=== PATIENT | female | born 1930 | race Caucasian/White ===

== ENCOUNTER 2017-07-03 12:01 | Emergency (ER) | payer MEDICARE ==
--- NOTE | 2017-07-03 07:05 | PM ---
[facility] NOTE: DATE OF VISIT: 07/02/17 HISTORY: I had the pleasure of seeing Ms. Mikaela Dixon at the [facility] today. Ms. Dixon is a pleasant 86-year-old female who presents today for right-sided upper lumbar thoracic pain secondary to myofascial dysfunction and myositis. She returns today noticing a slight difference in her usual pain presentation. She did undergo right-sided trigger point injections previously, the most recent of which was in November, which she feels offered 80% pain relief up until most recently. At this point, she feels the pain is focused more over her right lower thoracic, upper lumbar spine but feels that her pain is slightly deeper than baseline. She feels that her pain is slightly different than normal as it does not associate with the normal amount of muscle spasms and tightness, but feels that it is more midline into her spine. She continues using Tylenol, which helps between 50% to 75% of her symptomatology. She does not smoke tobacco but does drink 1 glass of wine per night. She does not use any recreational drugs. She has not had any falls in the last 3 months. She rates her pain as 4/10 and describes it as aching, radiating sensations over the right side. She notes no new onset of pain. She denies any major focal neurological deficits such as weakness or numbness. She notes no new bowel or bladder dysfunction such as incontinence or retention. She notes no new radiation of the pain. She feels the pain is centered over her right back in the area of the T12-L1 region. ALLERGIES: FLU VACCINE, CODEINE, NITROFURANTOIN, BUPROPION, CIPRO, CLOPIDOGREL , SULFA, LYRICA. MEDICATIONS: 1. Nifedipine. 2. Aspirin. 3. Corgard. 4. Dyazide. 5. Lipitor. 6. Nexium. 7. Nitroglycerin as needed. 8. Orphenadrine. 9. Singulair. 10. Synthroid. 11. Timoptic. 12. Travatan. 13. Xanax. 14. Alendronate. 15. Tylenol PM. REVIEW OF SYSTEMS: A total of 9 systems were reviewed and found to be negative other than what has been previously mentioned in the HPI and past medical history. PHYSICAL EXAMINATION: Vitals: Temperature 97.3, pulse 74, respiratory rate 18, oxygen saturation 97%, blood pressure 107/52. Height 5 feet 1-1/2 inches, weight 145 pounds. Constitutional: The patient is awake, alert, and appropriately interactive. Her mood and affect are appropriate to today's evaluation and she does not appear to be in any acute distress at rest. Strength: Grossly intact in the upper and lower extremities with no major deficits or asymmetries. Sensation: Intact throughout to light touch with no major deficits or asymmetries. Reflexes: No interval changes. Musculoskeletal: There is no obvious muscle wasting, rigidity, or spasticity, but there is significant tenderness to palpation over the right axial spine in the area of T12 and L1. Facet provocation is equivocal for dysfunction on the right. Straight leg raise is negative for radiculopathy. There does appear to be some degree of a heating pad rash and burn on the right side most consistent with a combination of eczema as well as possible psoriasis over the right back. 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 She denies any infections over the area. IMAGING: CT of the lumbar spine shows degenerative disk disease, osteoarthritis , ligamentous hypertrophy at L1-L2, L2-L3, L3-L4, L4-L5 as well as L5-S1. There is moderate left and mild neuroforaminal narrowing at L4-5. MRI of the thoracic spine shows degenerative spondylosis that is minor, L1, L2, T12 as well as T11 with no disk herniations or foraminal stenosis. She did undergo a recent diagnosis of osteoarthritis and had a DEXA bone scan, which showed some osteopenia as well as osteoporosis at her primary care's office. ASSESSMENT: Ms. 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 Her symptoms are most consistent with T12 and L1 level pain. PLAN: Given the neuraxial origin of symptomatology at this point, I will move forward with right-sided facet injections with Depo as tolerated at T12 and L1. Her questions are answered and her concerns are otherwise addressed at today's office visit. She denies use of anticoagulants, history of coagulopathies or use of antibiotics for the treatment of infections. PROCEDURE NOTE: The patient was brought over to the fluoroscopy suite and assisted to prone position on the fluoroscopy table. The low back was prepped and draped in the usual sterile fashion. The Time Out procedure was completed and documented. Using fluoroscopy, I then identified the right T12 transverse process and anesthetized the skin and subcutaneous tissues over the area with 1 ml of preservative-free 1% Lidocaine. Using a 3 1/2-inch 22 gauge spinal needle , I directed under fluoroscopic guidance to the superior and medial aspect of the right T12 transverse process. Once bone was contacted, I confirmed my view fluoroscopically, and after negative aspiration, proceeded to inject 1 ml of preservative-free 1% Lidocaine with 15 mg of Depo-Medrol. I then identified the right L1 transverse process and anesthetized the skin and subcutaneous tissues over the area with 1 ml of preservative-free 1% Lidocaine. Using a 3 1/ 2-inch 22 gauge spinal needle, I directed under fluoroscopic guidance to the superior and medial aspect of the right L1 transverse process. Once bone was contacted, I confirmed my view fluoroscopically, and after negative aspiration, proceeded to inject 1 ml of preservative-free 1% Lidocaine with 15 mg of Depo- Medrol. The patient tolerated the procedure well, and was brought back to the [facility] in stable condition, and discharged with instructions to follow up as scheduled. Fluoroscopic images were saved. The patient tolerated the procedure well. 15 mg of Depo-Medrol was used at each level. She was returned to the pain clinic in stable condition and will follow up with me in three weeks' time to reassess her progress. She did not have any focal neurological deficits or paresthesias during the procedure. [id number]/[facility] #: [id number] GABRIELA
[2017-07-03] MEDS ORDERED: Ketorolac INJ* 30 MG/ML 1 ML VIAL IM ONE (16:31)
[2017-07-03] MEDS ORDERED: Orphenadrine Citrate IV* 30 MG/ML 2 ML VIAL IM ONE (16:31)
--- NOTE | 2017-07-03 16:38 | ED ---
Back Pain - HPI Summary HPI Summary: 86 female presents to ED with complaints of chronic back pain that has been worsening over the past couple of days. Patient gets trigger point injections at Dr Baker's office however just recently, yesterday, had a steroid injection. Was told area will be sore and would not take effect until 3-5 days after however this morning patient went to sit on toilet and developed a pain that has been constant ever since. Describes the pain to be the same as her chronic pain with increasing intensity. Took tylenol without much relief. Is able to bear weight and walk however prolonged positions worsens her pain. Has tried ice and heat. No other complaints at this time. Denies saddle anesthesia, bladder/bowel incontinence, and numbness/tingling. Pain does not radiate. It stays in mid thoracic area. Denies urinary symptoms. No weakness. Wants pain relief to participate in daily activities until steroid injection kicks in.No abdominal pain or chest pain. No recent trauma, injury or falls. - History of Current Complaint Chief Complaint: EDBackInjuryPain Stated Complaint: BACK PAIN/HERE YESTERDAY Time Seen by Provider: 07/03/17 16:31 Hx Obtained From: Patient Onset/Duration: Gradual Onset, Lasting Days, Still Present, Worse Since Onset/Duration: Started Days Ago, Atraumatic - chronic, on top of steroid injection pain Timing: Constant Back Pain Location: Is Discrete @ - across thoracic mid back Severity Initially: Moderate Severity Currently: Moderate Pain Intensity: 5 Pain Scale Used: 0-10 Numeric Character: Sharp, Aching, Spasmodic - "burning" Aggravating Symptom(s): Movement, Bending, Walking Alleviating Symptom(s): Rest, Position Associated Signs And Symptoms: Positive: Negative. Negative: Swelling, Redness , Bruising, Weakness, Numbness, Tingling, Abdominal Pain, Bladder Incontinence, Bowel Incontinence, Pain with Weight Bearing Related History: Previous Back Injury - Risk Factors AAA Risk Factors: Hypertension, Atherosclerosis TAD Risk Factors: Negative Cauda Equina Risk Factors: Negative Epidural Abscess Risk Factors: Negative - Allergies/Home Medications Allergies/Adverse Reactions: Allergies Allergy/AdvReac Type Severity Reaction Status Date / Time Bupropion [From Wellbutrin] Allergy Unknown Unknown Verified 07/02/17 13:45 Reaction Details Ciprofloxacin [From Cipro] Allergy Unknown Unknown Verified 07/02/17 13:45 Reaction Details Codeine Allergy Unknown GI Upset Verified 07/04/17 22:13 Flu Virus Vaccine Allergy Unknown Unknown Verified 07/02/17 13:45 Reaction Details Nitrofurantoin Allergy Unknown Unknown Verified 07/02/17 13:45 [From Macrobid] Reaction Details Pregabalin [From Lyrica] Allergy Unknown Unknown Verified 07/02/17 13:45 Reaction Details Sulfa Drugs Allergy Unknown Unknown Verified 07/02/17 13:45 Reaction Details Clopidogrel [From Plavix] AdvReac Bleeding Verified 07/02/17 13:45 PMH/Surg Hx/FS Hx/Imm Hx Endocrine/Hematology History: Reports: Hx Thyroid Disease - hypothyroidism Denies: Hx Anticoagulant Therapy, Hx Diabetes Cardiovascular History: Reports: Hx Angina - prinzemetals angina, Hx Hypertension - CONTROLLED WITH MEDICATION Denies: Hx Pacemaker/ICD GI History: Reports: Hx Gall Bladder Disease - surgery 1995, Hx Gastroesophageal Reflux Disease - 08/26 resolved, Hx Irritable Bowel History: Reports: Hx Kidney Stones - week of september Comment Only: Other Problems/Disorders - KNOWN BILAT KIDNEY STONES FOR A WHILE BEING FOLLOWED BY UROLOGY Musculoskeletal History: Reports: Hx Arthritis, Hx Back Problems, Hx Fibromyalgia, Hx Osteoporosis, Other Musculoskeletal History - arthritis, mid back pain no trauma, SHINGLES 05/2012, FALL 06/2012 Sensory History: Reports: Hx Cataracts - surgery 1999 Denies: Hx Hearing Aid Opthamlomology History: Reports: Hx Cataracts - surgery 1999 Neurological History: Reports: Hx Transient Ischemic Attacks (TIA), Other Neuro Impairments/Disorders - PAIN CLINIC PATIENT Psychiatric History: Reports: Hx Anxiety Denies: Hx Panic Disorder - Cancer History Hx Chemotherapy: No Hx Radiation Therapy: No - Surgical History Surgery Procedure, Year, and Place: Total Abdominal Hysterectomy/bso 1984. bladder suspension 1984. left great toe 1992. breast cysts 1983. cholecystectomy 1995. hand surgery 2003. left thumb. cataracts [facility] - Immunization History Immunizations Up to Date: Yes Infectious Disease History: Reports: Hx Shingles - 2011 Denies: Traveled Outside the [place] in Last 30 Days - Family History Known Family History: Positive: None - Social History Alcohol Use: Weekly Alcohol Amount: GLASS OF WINE Substance Use Type: Reports: None Substance Use Comment - Amount & Last Used: oxycodone, valium Smoking Status (MU): Never Smoked Tobacco Review of Systems Constitutional: Negative Cardiovascular: Negative Respiratory: Negative Gastrointestinal: Negative Positive: Arthralgia, Myalgia - back pain Skin: Negative Neurological: Negative All Other Systems Reviewed And Are Negative: Yes Physical Exam Triage Information Reviewed: Yes Vital Signs On Initial Exam: Initial Vitals Temp Pulse Resp BP Pulse Ox 98.7 F 68 20 134/73 98 07/03/17 12:05 07/03/17 12:05 07/03/17 12:05 07/03/17 12:05 07/03/17 12:05 Vital Signs Reviewed: Yes Appearance: Positive: Well-Appearing, Well-Nourished, Pain Distress - mild with movement Skin: Positive: Warm, Skin Color Reflects Adequate Perfusion, Dry, Other - aqua colored chronic patches noted to lower lumbar area skin, scaley. appears stained by something. no other erythema, concern for allergic reaction, ecchymosis or edema. 2 purple/marker potts at area where injections were placed noted.. Negative: Cold, Soft, Pale, Erythema @ Head/Face: Positive: Normal Head/Face Inspection Eyes: Positive: Conjunctiva Clear ENT: Positive: Hearing grossly normal Neck: Positive: Supple, Nontender Respiratory/Lung Sounds: Positive: Clear to Auscultation, Breath Sounds Present. Negative: Rales, Rhonchi, Wheezes Cardiovascular: Positive: Normal, RRR, Pulses are Symmetrical in both Upper and Lower Extremities - 2+ pedal and radial b/l. Negative: Murmur, Rub Abdomen Description: Positive: Nontender, No Organomegaly, Soft. Negative: Bruit, CVA Tenderness (R), CVA Tenderness (L), Distended, Guarding, Peritoneal Signs, Pulsatile Mass Bowel Sounds: Positive: Present Musculoskeletal: Positive: Normal, Limited @ - at back with ROM, pain, Pain @ - mid thoracic back T4-T8, Other - no obvous deformity or signs of recent trauma. Negative: Interruption @, Edema Left, Edema Right Neurological: Positive: Normal, Sensory/Motor Intact - sensation intact and normal, Alert, Oriented to Person Place, Time, CN Intact II-III, Reflexes Intact , NV Bundle Intact Distally, Normal Gait Psychiatric: Positive: Affect/Mood Appropriate Diagnostics - Vital Signs Vital Signs Temp Pulse Resp BP Pulse Ox 07/03/17 14:17 97.5 F 70 18 119/55 99 07/03/17 12:05 98.7 F 68 20 134/73 98 - Laboratory Lab Statement: Any lab studies that have been ordered have been reviewed, and results considered in the medical decision making process. Back Pain Course/Dx - Course Course Of Treatment: has good kidney function. given norflex and toradol. had relief. will be sent home with pain managment encouraged to try lidoderm patches. ice/heat, rest. follow up dr baker and pcp. follow up derm. return if symptoms worsen or new symptoms develop. no concern for any emergent etiology at this time. no signs of trauma and normal PE findings. no need for imaging due to PE findings, HPI and no trauma/injury. rash on back chronic and of no emergent concern requiring treatment at this time. patient understands and is in agreement with this plan. - Diagnoses Differential Diagnosis/HQI/PQRI: Positive: Herniated Disc, Strain, Sprain Provider Diagnoses: Chronic back pain greater than 3 months duration Discharge - Discharge Plan Condition: Stable Disposition: HOME Prescriptions: Cyclobenzaprine TAB* [Flexeril 10 MG TAB*] 10 mg PO BEDTIME #5 tab traMADol TAB* [Ultram*] 25 mg PO ONCE #5 tab MDD 2 Patient Education Materials: Chronic Back Pain (ED) Referrals: Bill Holt MD [Primary Care Provider] - Additional Instructions: Take prescribed medication as directed for the next couple of days. Do not drive while taking these medications. For Tonight: only take 1 tramadol at bed time. Tomorrow: ibuprofen 400mg with food in morning. Tramadol at lunchtime. Ibuprofen at dinner. Flexeril at bed time. DO NOT TAKE XANAX. Hold-off on babyaspirin until you no longer are taking ibuprofen (3days). Discontinue all medications in 3-5 days when symptoms improve and resume normal daily xanax, aspirin as you typically do. Continue icing and heating. Rest. Follow up with Dr Baker and primary care provider. If new symptoms develop or symptoms worsen please return or seek medical attention promptly. (numbness/tingling, weakness, bladder/bowel incontinence, increasing pain) Make an appointment with client hr manager to follow up on chronic skin rash.
[2017-07-03 17:53] VITALS: BP 122/57
[2017-07-03] MEDS ORDERED: traMADol TAB* 50 MG PO ONE (18:48)
[2017-07-03] MEDS ORDERED: Cyclobenzaprine TAB* 10 MG PO ONE (18:48)
== END 2017-07-03 17:55 | disposition home or self-care (01) ==
LOC: ED 12:01
DX: G89.29 Other chronic pain (principal); M54.6 Pain in thoracic spine; F41.9 Anxiety disorder, unspecified; Z90.710 Acquired absence of both cervix and uterus; Z90.49 Acquired absence of other specified parts of digestive tract; Z98.42 Cataract extraction status, left eye; Z98.41 Cataract extraction status, right eye; Z88.1 Allergy status to other antibiotic agents; Z88.5 Allergy status to narcotic agent; Z88.2 Allergy status to sulfonamides; Z88.7 Allergy status to serum and vaccine; Z88.8 Allergy status to other drugs, medicaments and biological substances
CPT/HCPCS: 96372; 99282; A9270-GY; J1885; J2360

== ENCOUNTER → 2018-11-04 13:40 | Emergency (ER) | payer MEDICARE ==
--- OUTSIDE RECORDS SUMMARY | 2018-11-04 14:12 | XMS REPORT | Continuity of Care Document ---
:1930 External Reference #:[id number] Author Name Coco Lucero Care Team Providers Name Role Phone Bill Holt MD Primary Care Physician Unavailable Payers Type Date Identification Numbers Payment Provider Subscriber Policy Number: [id number] Medicare Mikaela Parks [place] PayID: [id number] [address] [place] [address] Expires: 2018 Policy Number: [id number] Medicare Mikaela Parks [place] PayID: [id number] [address] [place] [address] Policy Number: [id number] [facility] Mikaela Parks [place] PayID: [id number] [address] [place] [address] Advance Directives Description No Information Available Problems Date Description Provider Status Onset: 07/18/2015 Essential hypertension Michael Echavarria M.D. Active Family History Date Family Member(s) Problem(s) Comments Father due to Stroke () Father due to Heart Attack () Mother Thyroid Disease Hypothyroid Mother due to Natural Causes () Siblings 3 2 living sisters, 1 sister with melanoma and COPD, passed from CHF Social History Type Date Description Comments Sex Unknown Marital Status Lives With Alone Occupation Retired Tobacco Use Start: Unknown Never Smoked Cigarettes Smoking Status Reviewed: 10/28/18 Never Smoked Cigarettes ETOH Use Consumes 1 glass of wine not every day per day Tobacco Use Start: Unknown Patient has never smoked Recreational Drug Use Denies Drug Use Exercise Type/Frequency Exercises rarely Allergies, Adverse Reactions, Alerts Date Description Reaction Status Severity Comments 05/01/2014 Sulfa Antibiotics Active 05/01/2014 Flu Virus Vaccine Active 05/01/2014 Poliomyelitis Vaccine, Active patient does not Inactivated think this is accurate 05/01/2014 Serums (Vaccines) Active 05/02/2014 Wellbutrin Active 05/02/2014 Lyrica itching Active 05/02/2014 Cipro Active 05/02/2014 Codeine nightmares Active 05/02/2014 Tramadol Active 05/02/2014 Plavix Active Medications Medication Date Status Form Strength Qnty SIG Indications Ordering Provider Hydrochlorothiazide 10/28 Active Tablets 12.5mg 90tab 1 by mouth I10 Michael /2017 s every D. Brand, other day M.D. Nifedipine ER Active Tablets 30mg 30tab 1 by mouth Unknown /0000 ER 24HR s every day Levothyroxine Active Tablets 50mcg 90tab 1 by mouth Unknown Sodium /0000 s every day Fluoxetine HCL Active Capsules 20mg 30cap 1 by mouth Unknown /0000 s every day Am Alprazolam Active Tablets 0.25mg 30tab one by Unknown /0000 s mouth up to three times daily as needed for anxiety Atorvastatin Active Tablets 10mg 1 by mouth Unknown Calcium /0000 every day Nadolol Active Tablets 20mg 90tab 1 by mouth Unknown /0000 s every day Aspirin Active Chewtabs 81mg 1 by mouth Unknown /0000 every day Nexium Active Capsules 40mg 30cap 1 by mouth Unknown /0000 DR s as needed Nitrostat Active Tablets 0.4mg 25tab one sl Michael / Sub s q5min up D. Brand, to 3 doses M.D. as needed Travatan Z Active Solution 0.004% 1 ggt both Unknown /0000 eyes every night at bedtime Timoptic Active Solution 0.5% 1 drop in Unknown /0000 left eye every day Tylenol Extra Active Tablets 500mg 100ta 1 tablet Unknown Strength /0000 bs by mouth twice a day as needed Montelukast Sodium Active Tablets 10mg 1 by mouth Unknown /0000 every day Triamterene/Hydroch Hx 37.5-25mg 1 po qod Unknown lorothiazide /0000 - 10/28 Aspirin 00/00 Hx Tablets 325mg 1 by mouth Unknown /0000 every day - 04/18 Orphenadrine 00/00 Hx Tablets 100mg 1 po qd as Unknown Citrate ER /0000 ER 12HR needed - 08/30 Voltaren 00/00 Hx apply to Unknown /0000 affected - area as 08/30 Mupirocin 00/00 Hx Ointment 2% applied to Unknown /0000 affected - area as 03/03 Fluocinonide 0000 Hx Ointment 0.05% applied to Unknown /0000 affected - area as 04/02 B 12 Injection 00/00 Hx 1 Darlow, /0000 injection Bill Cano, - monthly 10/31 Allergy 00/00 Hx Tablets 10mg 1 by mouth Unknown /0000 every day - 08/30 Zyrtec Allergy 00/00 Hx daily Unknown /0000 - 10/31 Cyclobenzaprine HCL 00/00 Hx Tablets 10mg Unknown /0000 - 09/15 Ibandronate Sodium 0000 Hx Tablets 150mg 1 tablet Unknown /0000 po monthly - 10/31 Tramadol HCL 0000 Hx Tablets 50mg 1 tablet Unknown /0000 po as - needed 01/31 (does take) Drug For 00 Hx not sure Unknown Osteoporosis /0000 of name - 10/27 Medications Administered in Office Medication Date Status Form Strength Qnty SIG Indications Ordering Provider Triamcinolone 08/16/ Administered Injection Zaneb (Kenalog) 2017 MD Shae Inj, 09/17/ Administered Injection Michael D. Regadenoson, 0.1 2016 Brand, MG M.D. Technetium TC 09/17/ Administered Injection Michael D. 99M Tetrofosmin, 2016 Brand, Per Unit Dose Up M.D. To 40 Millicuries Triamcinolone 04/30/ Administered Injection Zaneb (Kenalog) 2015 MD Shae Inj, 05/17/ Administered Injection Sherie Regadenoson, 0.1 2012 Merrill, MG M.D. Technetium TC 05/17/ Administered Injection Sherie 99M Tetrofosmin, 2012 Bennett, Per Unit Dose Up M.D. To 40 Millicuries Immunizations Description No Information Available Vital Signs Date Vital Result Comment 10/28/2018 12:07pm Height 61.5 inches 5'1.50" Weight 145.00 lb Heart Rate 60 /min BP Systolic Sitting 104 mmHg Lue, reg cuff BP Diastolic Sitting 58 mmHg Lue, reg cuff BP Systolic Standing 104 mmHg Lue, reg cuff BP Diastolic Standing 54 mmHg Lue, reg cuff Respiratory Rate 12 /min O2 % BldC Oximetry 98 % BMI (Body Mass Index) 27.0 kg/m2 Ejection Fraction 55-60% echo 09/29/17 08/16/2018 3:59pm Height 61.5 inches 5'1.50" Weight 147.00 lb BP Systolic 112 mmHg BP Diastolic 60 mmHg Respiratory Rate 20 /min Body Temperature 97.1 F Pain Level 5 BMI (Body Mass Index) 27.3 kg/m2 06/02/2018 3:43pm Height 61.5 inches 5'1.50" Weight 147.00 lb per pt Heart Rate 72 /min BP Systolic Sitting 118 mmHg Rue lg cuff BP Diastolic Sitting 74 mmHg Rue lg cuff BP Systolic Standing 120 mmHg Rue BP Diastolic Standing 70 mmHg Rue Respiratory Rate 16 /min BMI (Body Mass Index) 27.3 kg/m2 Ejection Fraction 55-60% as of 09/29/17 echo 12/08/2017 10:13am Height 61.5 inches 5'1.50" Weight 148.00 lb Per patient Heart Rate 68 /min BP Systolic Sitting 120 mmHg Rue lrg cuff BP Diastolic Sitting 78 mmHg Rue lrg cuff BP Systolic Standing 114 mmHg Rue lrg cuff BP Diastolic Standing 74 mmHg Rue lrg cuff Respiratory Rate 14 /min BMI (Body Mass Index) 27.5 kg/m2 Ejection Fraction 55-60% 09/29/2017-echo 11/01/2017 10:51am Height 61.5 inches 5'1.50" Weight 148.00 lb Heart Rate 64 /min BP Systolic Sitting 120 mmHg BP Diastolic Sitting 78 mmHg Respiratory Rate 14 /min O2 % BldC Oximetry 97 % BMI (Body Mass Index) 27.5 kg/m2 Neck Circumference in inches 14 10/05/2017 12:45pm Height 61.5 inches 5'1.50" Weight 147.31 lb stated by pt, at home w/o clothes Heart Rate 78 /min BP Systolic Sitting 122 mmHg lue reg cuff BP Diastolic Sitting 74 mmHg lue reg cuff Respiratory Rate 18 /min BMI (Body Mass Index) 27.4 kg/m2 Ejection Fraction 55-60% echo 09/29/17 08/31/2017 2:07pm Height 61.5 inches 5'1.50" Weight 150.44 lb with shoes Heart Rate 56 /min BP Systolic Sitting 112 mmHg Lue reg cuff BP Diastolic Sitting 80 mmHg Lue reg cuff BP Systolic Standing 104 mmHg Lue reg cuff BP Diastolic Standing 80 mmHg Lue reg cuff Respiratory Rate 16 /min BMI (Body Mass Index) 28.0 kg/m2 Ejection Fraction 55-60% date 03/16/16 ECHO 07/17/2016 11:10am Height 61.5 inches 5'1.50" Weight 145.00 lb without shoes Heart Rate 72 /min regular BP Systolic Sitting 105 mmHg Rue reg cuff BP Diastolic Sitting 60 mmHg Rue reg cuff BP Systolic Standing 110 mmHg Rue reg cuff BP Diastolic Standing 60 mmHg Rue reg cuff Respiratory Rate 18 /min BMI (Body Mass Index) 27.0 kg/m2 Ejection Fraction 55-60% echo 02/18/16 04/30/2016 11:06am Height 61.5 inches 5'1.50" Weight 140.00 lb Heart Rate 68 /min Respiratory Rate 16 /min Pain Level 5 BMI (Body Mass Index) 26.0 kg/m2 07/18/2015 11:50am Height 61.5 inches 5'1.50" Weight 140.31 lb with out shoes Heart Rate 68 /min BP Systolic Sitting 110 mmHg Ra reg cuff BP Diastolic Sitting 62 mmHg Ra reg cuff BP Systolic Standing 112 mmHg Ra reg cuff BP Diastolic Standing 70 mmHg Ra reg cuff Respiratory Rate 16 /min BMI (Body Mass Index) 26.1 kg/m2 Ejection Fraction 53% date 03/21/13 05/02/2014 10:32am Weight 142.50 lb per pt (refused wt here in office) Heart Rate 68 /min BP Systolic Sitting 106 mmHg Ra reg cuff BP Diastolic Sitting 78 mmHg Ra reg cuff BP Systolic Standing 100 mmHg Ra BP Diastolic Standing 76 mmHg Ra Respiratory Rate 16 /min Results Test Date Facility Test Result H/L Range Note Laboratory test 03/24/2015 [facility] Troponin I 0.00 ng/mL N <0.03 [address] [place] [address] [phone] B Type Natriuretic Peptide 88 pg/mL N 2 Comp Metabolic Panel 03/24/2015 [facility] Sodium 128 mmol/L Low 133-[address] [place] [address] [phone] Potassium 3.8 mmol/L N 3.5-5.0 Chloride 98 mmol/L Low 101-111 Co2 Carbon Dioxide 23 mmol/L N 22-32 Anion Gap 7 mmol/L N 2-11 Glucose 122 mg/dL High 70-100 Blood Urea Nitrogen 12 mg/dL N 6-24 Creatinine 0.80 mg/dL N 0.51-0.95 BUN/Creatinine Ratio 15.0 N 8-20 Calcium 9.7 mg/dL N 8.6-10.3 Total Protein 6.8 g/dL N 6.4-8.9 Albumin 4.3 g/dL N 3.2-5.2 Globulin 2.5 g/dL N 2-4 Albumin/Globulin Ratio 1.7 N 1-3 Total Bilirubin 0.70 mg/dL N 0.2-1.0 Alkaline Phosphatase 89 U/L N 34-104 Alt 21 U/L N 7-52 Ast 22 U/L N 13-39 Egfr Non- 68.7 N >60 Egfr 88.3 N >60 3 Laboratory test 03/24/2015 [facility] Lactic Acid 1.5 mmol/L N 0.5-2.[address] [place] [address] [phone] CBC Auto Diff 03/24/2015 [facility] White Blood 6.1 10^3/uL N 4.8-10.[address] [place] [address] [phone] Red Blood Count 4.12 10^6/uL N 4.0-5.4 Hemoglobin 14.7 g/dL N 12.0-16.0 Hematocrit 41 % N 35-47 Mean Corpuscular Volume 101 fL High 80-97 Mean Corpuscular Hemoglobin 36 pg High 27-31 Mean Corpuscular HGB Conc 36 g/dL N 31-36 Red Cell Distribution Width 12 % N 10.5-15 Platelet Count 131 10^3/uL Low 150-450 Mean Platelet Volume 8 um3 N 7.4-10.4 Abs Neutrophils 4.7 10^3/uL N 1.5-7.7 Abs Lymphocytes 0.7 10^3/uL Low 1.0-4.8 Abs Monocytes 0.7 10^3/uL N 0-0.8 Abs Eosinophils 0 10^3/uL N 0-0.6 Abs Basophils 0 10^3/uL N 0-0.2 Abs Nucleated RBC 0.01 10^3/uL N Granulocyte % 77.1 % N 38-83 Lymphocyte % 11.2 % Low 25-47 Monocyte % 10.9 % High 1-9 Eosinophil % 0.5 % N 0-6 Basophil % 0.3 % N 0-2 Nucleated Red Blood Cells % 0.1 N 1 Reference Range and Interpretation: TnI (ng/mL) Interpretation Less Than 0.03 ng/mL Not supportive of diagnosis of ME 0.03 - 0.50 ng/mL Indeterminate: suggest serial studies if clinically indicated. Greater than 0.5 ng/mL Consistent with diagnosis of ME 2 >100 to <200 pg/mL: likely compensated congestive heart failure (CHF) 200 to 400 pg/mL: likely moderate CHF >400 pg/mL: likely moderate to severe CHF [place] [facility] 3 Because ethnic data is not always readily available, this report includes an eGFR for both -Americans and non- Americans. The National Kidney Disease Education Program (NKDEP) does not endorse the use of the MDRD equation for patients that are not between the ages of 18 and 70, are , have extremes of body size, muscle mass, or nutritional status, or are non- or non-. According to the National Kidney Foundation, irrespective of diagnosis, the stage of the disease is based on the level of kidney function: Stage Description GFR(mL/min/1.73 m(2)) 1 Kidney damage with normal or decreased GFR 90 2 Kidney damage with mild decrease in GFR 60-89 3 Moderate decrease in GFR 30-59 4 Severe decrease in GFR 15-29 5 Kidney failure <15 (or dialysis) Procedures Date Code Description Status 10/28/2018 91053 EKG Tracing & Interpretation Completed 08/16/2018 59083 Inject/Drain Joint/Bursa Major W/O US Completed 06/02/2018 13489 EKG Tracing & Interpretation Completed 10/14/2017 10884 Diffusing Capacity Completed 10/14/2017 80613 Plethysmography Determination Lung Volumes & Per Airway Completed Resist 10/14/2017 82735 Pulmonary Stress Test Simple Completed 09/29/2017 87280 ECHO Transthoracic, Real-Time 2D With Doppler And Color Completed Flow 09/29/2017 87223 ECHO Transthoracic, Real-Time 2D With Doppler And Color Completed Flow 09/17/2017 84666 Stress Test Completed 09/17/2017 50250 Myocardial Perfusion Imaging Tomographic (Spect) Multiple Completed Studies 09/06/2017 20012 Holter Monitor Review (24 hr)dr review & interp only Completed 09/02/2017 03369 ECG Monitor/Recording W/Visual Superimposition Scanning Completed 09/02/2017 12948 ECG Monitor/Recording W/Visual Superimposition Scanning Completed 09/02/2017 13766 ECG Monitor/Recording W/Visual Superimposition Scanning Completed 08/31/2017 71588 EKG Tracing & Interpretation Completed 07/17/2016 89385 EKG Tracing & Interpretation Completed 04/30/2016 99678 Inject/Drain Joint/Bursa Major W/O US Completed 03/16/2016 39927 ECHO Transthoracic, Real-Time 2D With Doppler And Color Completed Flow 07/18/2015 49852 EKG Tracing & Interpretation Completed 05/02/2014 74237 EKG Tracing & Interpretation Completed 05/17/2013 64624 Stress Test Completed 05/17/2013 03632 Myocardial Perfusion Imaging Tomographic (Spect) Multiple Completed Studies 03/24/2013 67898 Holter Monitoring 24 HR New Completed 03/21/2013 25106 ECHO Transthoracic, Real-Time 2D With Doppler And Color Completed Flow 03/10/2013 87292 EKG Tracing & Interpretation Completed Encounters Type Date Location Provider Dx Diagnosis Office Visit 08/16/2018 Orthopedic Fanta Kaufman MD M25.562 Pain in left knee 3:15p [facility] M17.12 Unilateral primary osteoarthritis, left knee Office Visit 06/02/2018 3:30p [facility] Michael Johansen I44.7 Left bundle-branch Of Manuel Echavarria M.D. block, unspecified I10 Essential (primary) hypertension R00.2 Palpitations Office Visit 12/08/2017 10:30a [facility] Michael Johansen R06.02 Shortness of Of Manuel Echavarria M.D. breath I44.7 Left bundle-branch block, unspecified I10 Essential (primary) hypertension Office Visit 11/01/2017 11:00a [facility] R06.02 Shortness of Sleep Services Of MD Asad breath [employer] Account Assistant Office Visit 10/05/2017 1:00p [facility] Michael Johansen I44.7 Left Of [employer] Account Assistant AT [facility] Daniel Echavarria bundle-branch block, unspecified R00.2 Palpitations R06.02 Shortness of breath Office Visit 08/31/2017 2:00p [facility] Michael Johansen I10 Essential (primary) Of [employer] Account Assistant AT [facility] Daniel Echavarria hypertension R06.02 Shortness of breath I44.7 Left bundle-branch block, unspecified Office Visit 07/17/2016 11:45a [facility] Michael Johansen I10 Essential (primary) Of Manuel Echavarria M.D. 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 401.9 Hypertension Of Manuel Echavarria M.D. 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 Other 401.9 Hypertension Unspec Office Visit 03/29/2013 2:00p [facility] Michael Johansen 427.69 Premature Beats Of Manuel Echavarria M.D. Other 401.9 Hypertension Unspec Office Visit 03/10/2013 11:15a [facility] Michael Johansen 785.1 Palpitations Of Manuel Echavarria M.D. 786.05 Shortness Of Breath 401.9 Hypertension Unspec Office Visit 02/22/2013 10:45a Orthopedic Rhett Guardado, 719.45 [facility] Thigh 724.3 Sciatica Office Visit 10/21/2012 11:45a Orthopedic Deidre Ocampo 719.45 [facility] RUIZ-C Pelvic Region & Thigh Office Visit 07/21/2012 11:00a Orthopedic Rhett 719.45 [facility] Guardado M.D. Pelvic Region & Thigh Office Visit 06/02/2012 11:00a Orthopedic Rhett 724.3 Sciatica [facility] Guardado M.D. Plan of Treatment 10/28/2018 - Michael Echavarria M.D.I10 Essential (primary) hypertensionNew Medication:Hydrochlorothiazide 12.5 mg - 1 by mouth every other dayFollow up:6 monthsRecommendations:Stop Triamtrene/HCTZ combo pill Start HCTZ (single medication pill) at 12.5 mg every other dayR06.02 Shortness of petgnyB89.31 Abnormal electrocardiogram [ECG] [EKG]
[2018-11-04 16:07] LABS: ABS Basophils 0 10^3/ul (0-0.2); ABS Eosinophils 0.1 10^3/ul (0-0.6); ABS Lymphocytes 1.1 10^3/ul (1.0-4.8); ABS Monocytes 0.7 10^3/ul (0-0.8); ABS Neutrophils 3.6 10^3/ul (1.5-7.7); ABS Nucleated RBC 0 10^3/ul; Eosinophil % 2.2 %; Hematocrit 40 % (35-47); Hemoglobin 13.7 g/dl (12.0-16.0); Lymphocyte % 19.3 %; Mean Corpuscular HGB Conc 35 g/dl (31-36); Mean Corpuscular Hemoglobin 36 pg (27-31); Mean Corpuscular Volume 103 fL (80-97); Mean Platelet Volume 7.2 fL (7.4-10.4); Nucleated Red Blood Cells % 0; Platelet Count 129 10^3/ul (150-450); Red Blood Count 3.84 10^6/ul (4.00-5.40); Red Cell Distribution Width 13 % (10.5-15); White Blood Count 5.6 10^3/ul (3.5-10.8)
[2018-11-04 16:23] LABS: Albumin 3.9 g/dL (3.2-5.2); Albumin/Globulin Ratio 1.6 (1-3); BUN/Creatinine Ratio 22.4 (8-20); Calcium 9.7 mg/dL (8.6-10.3); EGFR Non-African American 63.4 (>60); Globulin 2.4 g/dL (2-4); Potassium 3.9 mmol/L (3.5-5.0); Total Bilirubin 0.5 mg/dL (0.2-1.0); Total Protein 6.3 g/dL (6.4-8.9)
[2018-11-04 16:50] LABS: Urine Appearance Cloudy; Urine Bacteria Absent (Absent); Urine Bilirubin Negative (Negative); Urine Blood Negative (Negative); Urine Color Yellow; Urine Glucose Negative (Negative); Urine Ketones Negative (Negative); Urine Nitrite Negative (Negative); Urine Protein Negative (Negative); Urine Red Blood Cell Absent (Absent); Urine Specific Gravity 1.011 (1.010-1.030); Urine Transitional Epithelial Present (Absent); Urine Urobilinogen Negative (Negative); Urine White Blood Cell 3+(>20/hpf) (Absent)
[2018-11-04 17:16] VITALS: BP 123/73
--- NOTE | 2018-11-04 18:18 | ED ---
Back Pain - HPI Summary HPI Summary: Patient is an 88-year-old female who presents emergency department for evaluation of ongoing mid back pain. Patient resides at home by herself and is very active still driving and traveling. Patient notes that about 2 weeks ago she was at the bank when she reached out the window to make a deposit and strained her mid back. Patient states she then went on a trip with her daughter to [place] and continued to have back pain. Pain is mildly improved with Tylenol and Valium and heat. Patient notes she does have a history of kidney stones and was concerned she may be possibly passing a stone. She denies fever, chills, urinary symptoms, abdominal pain, vomiting, diarrhea, constipation. She does note she's had a an upper respiratory infection the last few days with nasal congestion, productive cough. She otherwise denies chest pain but does complain of intermittent wheezing. Symptoms are moderate in severity. Movement makes symptoms worse. Medications and rest makes symptoms better. Patient notes she currently sees pain management received trigger point muscular injections for chronic back pain. - History of Current Complaint Chief Complaint: EDBackInjuryPain Stated Complaint: SEVERE BACK PAINS Time Seen by Provider: 11/04/18 14:43 Hx Obtained From: Patient Pain Intensity: 5 - Allergies/Home Medications Allergies/Adverse Reactions: Allergies Allergy/AdvReac Type Severity Reaction Status Date / Time bupropion [From Wellbutrin] Allergy Unknown Unknown Verified 10/04/18 09:07 Reaction Details ciprofloxacin [From Cipro] Allergy Unknown Unknown Verified 10/04/18 09:07 Reaction Details Influenza Virus Vaccines Allergy Unknown Unknown Verified 10/04/18 09:07 Reaction Details nitrofurantoin Allergy Unknown Unknown Verified 10/04/18 09:07 [From Macrobid] Reaction Details pregabalin [From Lyrica] Allergy Unknown Unknown Verified 10/04/18 09:07 Reaction Details Sulfa (Sulfonamide Allergy Unknown Unknown Verified 10/04/18 09:07 Antibiotics) Reaction Details clopidogrel [From Plavix] AdvReac Unknown Bleeding Verified 10/04/18 09:07 codeine AdvReac Unknown GI Upset Verified 10/04/18 09:07 PMH/Surg Hx/FS Hx/Imm Hx Previously Healthy: Yes Endocrine/Hematology History: Reports: Hx Thyroid Disease - hypothyroidism Denies: Hx Anticoagulant Therapy, Hx Diabetes Cardiovascular History: Reports: Hx Angina - prinzemetals angina, Hx Hypertension - CONTROLLED WITH MEDICATION, Other Cardiovascular Problems/ Disorders - left bundle branch block Denies: Hx Pacemaker/ICD Respiratory History: Reports: Other Respiratory Problems/Disorders - PT STATES HX OF PNEUMONIA GI History: Reports: Hx Gall Bladder Disease - surgery 1995, Hx Gastroesophageal Reflux Disease - 08/26 resolved, Hx Irritable Bowel History: Reports: Hx Kidney Stones - week of september Comment Only: Other Problems/Disorders - KNOWN BILAT KIDNEY STONES FOR A WHILE BEING FOLLOWED BY UROLOGY Musculoskeletal History: Reports: Hx Arthritis, Hx Back Problems, Hx Fibromyalgia, Hx Osteoporosis, Other Musculoskeletal History - arthritis, mid back pain no trauma, SHINGLES 05/2012, FALL 06/2012 Sensory History: Reports: Hx Cataracts - surgery 1999 Denies: Hx Hearing Aid Opthamlomology History: Reports: Hx Cataracts - surgery 1999 Neurological History: Reports: Hx Transient Ischemic Attacks (TIA), Other Neuro Impairments/Disorders - PAIN CLINIC PATIENT Psychiatric History: Reports: Hx Anxiety Denies: Hx Panic Disorder - Cancer History Hx Chemotherapy: No Hx Radiation Therapy: No - Surgical History Surgery Procedure, Year, and Place: Total Abdominal Hysterectomy/bso 1984. bladder suspension 1984. left great toe 1992. breast cysts 1983. cholecystectomy 1995. hand surgery 2003. left thumb. cataracts [facility] Infectious Disease History: No Infectious Disease History: Reports: Hx Shingles - 2011 Denies: Traveled Outside the [place] in Last 30 Days - Family History Known Family History: Positive: None, Non-Contributory - Social History Occupation: Retired Lives: Alone Alcohol Use: Rare Alcohol Amount: 5 drinks per week Substance Use Type: Reports: None Substance Use Comment - Amount & Last Used: oxycodone, valium Smoking Status (MU): Never Smoked Tobacco Have You Smoked in the Last Year: No Review of Systems Constitutional: Negative Negative: Fever, Chills Eyes: Negative Positive: Nasal Discharge Cardiovascular: Negative Negative: Palpitations, Chest Pain Positive: Cough Gastrointestinal: Negative Negative: Abdominal Pain, Vomiting, Diarrhea, Nausea Positive: flank pain. Negative: dysuria, frequency, hematuria Positive: Other - back pain Skin: Negative Neurological: Negative Psychological: Normal All Other Systems Reviewed And Are Negative: Yes Physical Exam Triage Information Reviewed: Yes Vital Signs On Initial Exam: Initial Vitals Temp Pulse Resp BP Pulse Ox 98.2 F 70 18 107/70 99 11/04/18 13:51 11/04/18 13:51 11/04/18 13:51 11/04/18 13:51 11/04/18 13:51 Vital Signs Reviewed: Yes Appearance: Positive: Well-Appearing - Pt. sitting up in bed in NAD> Very pleasant and talkative. Skin: Positive: Warm, Dry Head/Face: Positive: Normal Head/Face Inspection Eyes: Positive: Normal, EOMI ENT: Positive: Pharynx normal, Other - nasal congestion noted Neck: Positive: Supple. Negative: Nuchal Rigidity Respiratory/Lung Sounds: Positive: Other - Mild expiratory wheezing in bilateral bases Cardiovascular: Positive: Normal, RRR Abdomen Description: Positive: Nontender, Soft, Other: - Mild pain over left CVA. Musculoskeletal: Positive: Other - 5/5 in bilateral LEs. Negative straight leg test bilaterally. Midline tenderness to top of lumbar spine and over left flank. No rashes noted. Neurological: Positive: Normal, CN Intact II-III Psychiatric: Positive: Affect/Mood Appropriate Diagnostics - Vital Signs Vital Signs Temp Pulse Resp BP Pulse Ox 11/04/18 17:15 98.8 F 69 16 123/73 99 11/04/18 13:51 98.2 F 70 18 107/70 99 - Laboratory Lab Results: Lab Results 11/04/18 11/04/18 11/04/18 Range/Units 15:59 15:59 16:38 WBC 5.6 (3.5-10.8) 10^3/ul RBC 3.84 L (4.00-5.40) 10^6/ul Hgb 13.7 (12.0-16.0) g/dl Hct 40 (35-47) % MCV 103 H (80-97) fL MCH 36 H (27-31) pg MCHC 35 (31-36) g/dl RDW 13 (10.5-15) % Plt Count 129 L (150-450) 10^3/ul MPV 7.2 L (7.4-10.4) fL Neut % (Auto) 64.6 % Lymph % (Auto) 19.3 % [place] % (Auto) 13.0 % Eos % (Auto) 2.2 % Baso % (Auto) 0.9 % Absolute Neuts (auto) 3.6 (1.5-7.7) 10^3/ul Absolute Lymphs (auto) 1.1 (1.0-4.8) 10^3/ul Absolute Monos (auto) 0.7 (0-0.8) 10^3/ul Absolute Eos (auto) 0.1 (0-0.6) 10^3/ul Absolute Basos (auto) 0 (0-0.2) 10^3/ul Absolute Nucleated RBC 0 10^3/ul Nucleated RBC % 0 Sodium 133 L (135-145) mmol/L Potassium 3.9 (3.5-5.0) mmol/L Chloride 101 (101-111) mmol/L Carbon Dioxide 28 (22-32) mmol/L Anion Gap 4 (2-11) mmol/L BUN 19 (6-24) mg/dL Creatinine 0.85 (0.51-0.95) mg/dL Est GFR ( Amer) 76.7 (>60) Est GFR (Non-Af Amer) 63.4 (>60) BUN/Creatinine Ratio 22.4 H (8-20) Glucose 114 H (70-100) mg/dL Calcium 9.7 (8.6-10.3) mg/dL Total Bilirubin 0.50 (0.2-1.0) mg/dL AST 18 (13-39) U/L ALT 18 (7-52) U/L Alkaline Phosphatase 72 (34-104) U/L Total Protein 6.3 L (6.4-8.9) g/dL Albumin 3.9 (3.2-5.2) g/dL Globulin 2.4 (2-4) g/dL Albumin/Globulin Ratio 1.6 (1-3) Urine Color Yellow Urine Appearance Cloudy Urine pH 7.0 (5-9) Ur Specific [place] 1.011 (1.010-1.030) Urine Protein Negative (Negative) Urine Ketones Negative (Negative) Urine Blood Negative (Negative) Urine Nitrate Negative (Negative) Urine Bilirubin Negative (Negative) Urine Urobilinogen Negative (Negative) Ur Leukocyte Esterase 3+ A (Negative) Urine WBC (Auto) 3+(>20/hpf) A (Absent) Urine RBC (Auto) Absent (Absent) Ur Squamous Epith Cells Present A (Absent) Ur Transition Epith Cell Present A (Absent) Urine Bacteria Absent (Absent) Urine Glucose Negative (Negative) Urine Ascorbic Acid * A (Negative) Result Diagrams: 11/04/18 15:59 11/04/18 15:59 Lab Statement: Any lab studies that have been ordered have been reviewed, and results considered in the medical decision making process. Back Pain Course/Dx - Course Course Of Treatment: Patient presenting with ongoing back pain after pulling incident 2 weeks ago. She has no neurological deficits or evidence of cauda equina syndrome. She has no radicular pain. She also has been complaining of cough and nasal congestion over the last several days. We'll obtain CT scan for evaluation of lumbar spine as well as left Kidney history of nephrolithiasis. We'll also obtain basic labs and chest x-ray to evaluate for left lower lobe pneumonia. On reexamination patient is resting comfortably. She states that pain has improved since in the ER. Blood work is unremarkable. Chest x-ray is negative for acute findings, reading per radiology. CT scan shows changes as well as left nephrolithiasis without evidence of obstruction, reading per radiology. Urinalysis is contaminated, we'll send for cultures patient is having no symptoms at this time. Results were discussed. Will prescribe patient Ventolin for wheezing. Will not treat with antibiotics at this time given afebrile and negative chest x-ray. Patient notes she has a prescription for Ultram from the last time she was in the ER for back pain about a year ago. Advised her she can take this medication for pain as directed. Advised caution if taking with valium as it may make her very somnolent. To continue applying heat. To call PCP and pain management for close follow-up appointment. Return to the ER symptoms change or worsen. Patient understands and agrees with this plan. - Diagnoses Differential Diagnosis/HQI/PQRI: Positive: Aneurysm, Arthritis, Compressive Cord Syndrome, Epidural Abscess, Fracture, Herniated Disc, Neoplasm, Osteomyelitis, Septic Arthritis, Strain, Sprain Provider Diagnoses: Degenerative disc disease, Bronchospasm with bronchitis, acute Discharge - Sign-Out/Discharge Documenting (check all that apply): Patient Departure - Discharge Plan Condition: Good Disposition: HOME Prescriptions: Albuterol HFA INHALER* [Ventolin HFA Inhaler*] 1 puff INH Q6H PRN #1 mdi PRN Reason: wheeze Patient Education Materials: Osteoarthritis (ED), Back Pain (ED) Referrals: Bill Holt MD [Primary Care Provider] - Additional Instructions: Schedule a follow up appointment with your PCP Can continue valium for muscle relaxer as directed Will call if urine culture is positive Can take tramadol as directed for pain--caution taking with valium as it may make you very drowsy Continue heat Avoid heavy lifting Return to ER if symptoms change or worsen - Billing Disposition and Condition Condition: GOOD Disposition: Home
== END | disposition home or self-care (01) ==
LOC: ED 13:40
DX: J20.9 Acute bronchitis, unspecified (principal); M51.36 Other intervertebral disc degeneration, lumbar region; E03.9 Hypothyroidism, unspecified; I10 Essential (primary) hypertension; I44.7 Left bundle-branch block, unspecified; Z86.73 Personal history of transient ischemic attack (TIA), and cerebral infarction without residual deficits; Z87.442 Personal history of urinary calculi; F41.9 Anxiety disorder, unspecified; I70.90 Unspecified atherosclerosis; K57.90 Diverticulosis of intestine, part unspecified, without perforation or abscess without bleeding
CPT/HCPCS: 36415; 71046; 74176; 80053; 81003; 81015; 85025; 87086; 99282

== ENCOUNTER 2018-11-16 12:59 | Emergency (ER) | payer MEDICARE ==
[2018-11-16] MEDS ORDERED: Ketorolac INJ* 30 MG/ML 1 ML VIAL IM ONE (13:43)
[2018-11-16] MEDS ORDERED: Orphenadrine Citrate IV* 30 MG/ML 2 ML VIAL IM ONE (13:43)
--- NOTE | 2018-11-16 15:04 | ED ---
Back Pain - HPI Summary HPI Summary: 88-year-old female presents with left sided back pain and rib pain shoulder and knee pain after falling yesterday. She states she felt find yesterday but she just got back from a long drive. She denies any shortness of breath or chest pain. She admits to left rib wall pain but denies any chest wall pain. She is not on blood thinners. No abdominal pain. No nausea or vomiting. No numbness or weakness. No blood in her urine or stool. She denies any loss of bowel or bladder. No saddle anesthesias. No fever. She took some Tylenol this morning with minimal relief. States she has Valium and tramadol at home but she did not take either. - History of Current Complaint Chief Complaint: EDBackInjuryPain Stated Complaint: FELL, EXTREME BACK PAIN Time Seen by Provider: 11/16/18 13:23 Pain Intensity: 10 - Allergies/Home Medications Allergies/Adverse Reactions: Allergies Allergy/AdvReac Type Severity Reaction Status Date / Time bupropion [From Wellbutrin] Allergy Unknown Unknown Verified 11/16/18 13:05 Reaction Details ciprofloxacin [From Cipro] Allergy Unknown Unknown Verified 11/16/18 13:05 Reaction Details Influenza Virus Vaccines Allergy Unknown Unknown Verified 11/16/18 13:05 Reaction Details nitrofurantoin Allergy Unknown Unknown Verified 11/16/18 13:05 [From Macrobid] Reaction Details pregabalin [From Lyrica] Allergy Unknown Unknown Verified 11/16/18 13:05 Reaction Details Sulfa (Sulfonamide Allergy Unknown Unknown Verified 11/16/18 13:05 Antibiotics) Reaction Details clopidogrel [From Plavix] AdvReac Unknown Bleeding Verified 11/16/18 13:05 codeine AdvReac Unknown GI Upset Verified 11/16/18 13:05 PMH/Surg Hx/FS Hx/Imm Hx Endocrine/Hematology History: Reports: Hx Thyroid Disease - hypothyroidism Denies: Hx Anticoagulant Therapy, Hx Diabetes Cardiovascular History: Reports: Hx Angina - prinzemetals angina, Hx Hypertension - CONTROLLED WITH MEDICATION, Other Cardiovascular Problems/ Disorders - left bundle branch block Denies: Hx Pacemaker/ICD Respiratory History: Reports: Other Respiratory Problems/Disorders - PT STATES HX OF PNEUMONIA GI History: Reports: Hx Gall Bladder Disease - surgery 1995, Hx Gastroesophageal Reflux Disease - 08/26 resolved, Hx Irritable Bowel History: Reports: Hx Kidney Stones - week of september Comment Only: Other Problems/Disorders - KNOWN BILAT KIDNEY STONES FOR A WHILE BEING FOLLOWED BY UROLOGY Musculoskeletal History: Reports: Hx Arthritis, Hx Back Problems, Hx Fibromyalgia, Hx Osteoporosis, Other Musculoskeletal History - arthritis, mid back pain no trauma, SHINGLES 05/2012, FALL 06/2012 Sensory History: Reports: Hx Cataracts - surgery 1999 Denies: Hx Hearing Aid Opthamlomology History: Reports: Hx Cataracts - surgery 1999 Neurological History: Reports: Hx Transient Ischemic Attacks (TIA), Other Neuro Impairments/Disorders - PAIN CLINIC PATIENT Psychiatric History: Reports: Hx Anxiety Denies: Hx Panic Disorder - Cancer History Hx Chemotherapy: No Hx Radiation Therapy: No - Surgical History Surgery Procedure, Year, and Place: Total Abdominal Hysterectomy/bso 1984. bladder suspension 1984. left great toe 1992. breast cysts 1983. cholecystectomy 1995. hand surgery 2003. left thumb. cataracts [facility] Infectious Disease History: No Infectious Disease History: Reports: Hx Shingles - 2011 Denies: Traveled Outside the [place] in Last 30 Days - Family History Known Family History: Positive: None, Non-Contributory - Social History Alcohol Use: Rare Alcohol Amount: 5 drinks per week Substance Use Type: Reports: None Substance Use Comment - Amount & Last Used: oxycodone, valium Smoking Status (MU): Never Smoked Tobacco Have You Smoked in the Last Year: No Review of Systems Negative: Fever Positive: Other - ribs left pain. Negative: Chest Pain Negative: Shortness Of Breath Positive: Myalgia - left shoulder and knee, back apin All Other Systems Reviewed And Are Negative: Yes Physical Exam Triage Information Reviewed: Yes Vital Signs On Initial Exam: Initial Vitals Temp Pulse Resp BP Pulse Ox 98.1 F 69 16 123/60 99 11/16/18 13:02 11/16/18 13:02 11/16/18 13:02 11/16/18 13:02 11/16/18 13:02 Vital Signs Reviewed: Yes Appearance: Positive: Well-Appearing Skin: Positive: Warm, Dry Head/Face: Positive: Normal Head/Face Inspection Eyes: Positive: Normal, Conjunctiva Clear ENT: Positive: Pharynx normal Respiratory/Lung Sounds: Positive: Clear to Auscultation, Breath Sounds Present , Other - tenderness left ribs Cardiovascular: Positive: Normal, RRR Abdomen Description: Positive: Nontender, Soft Bowel Sounds: Positive: Present Musculoskeletal: Positive: Limited @ - back, Other - tenderness left side of back, good pulses, tenderness patella left knee, sensation grossly intact. tenderness left shoulder. neg SLR. Neurological: Positive: Normal, Normal Gait Psychiatric: Positive: Normal Diagnostics - Vital Signs Vital Signs Temp Pulse Resp BP Pulse Ox 11/16/18 13:02 98.1 F 69 16 123/60 99 - Laboratory Lab Statement: Any lab studies that have been ordered have been reviewed, and results considered in the medical decision making process. - Radiology knee Radiology Interpretation Completed By: Radiologist Summary of Radiographic Findings: IMPRESSION: No fracture is noted. No joint effusion is noted. Degenerative changes of the. patellofemoral joint is noted. rib Radiology Interpretation Completed By: Radiologist Summary of Radiographic Findings: IMPRESSION: No definite fracture of the left ribs is noted. shoulder Radiology Interpretation Completed By: Radiologist Summary of Radiographic Findings: IMPRESSION: No fracture of the left shoulder is noted. AC joint arthritis is noted. - CT spine CT Interpretation Completed By: Radiologist Summary of CT Findings: IMPRESSION: No fracture of the lumbar spine is noted. Degenerative disc disease at L2-L3. is noted of moderate degree. Moderate facet arthropathy is noted at L4-L5 and L5-S1. without definite central or foraminal stenosis. No significant change is noted since. July 15, 2016. Re-Evaluation - Re-Evaluation First Eval Change: Improved Comment: feeling better after toradol and norflex IM Back Pain Course/Dx - Course Course Of Treatment: 88-year-old female presents with left sided back pain and rib pain shoulder and knee pain after falling yesterday. She states she felt find yesterday but she just got back from a long drive. She denies any shortness of breath or chest pain. She admits to left rib wall pain but denies any chest wall pain. She is not on blood thinners. No abdominal pain. No nausea or vomiting. No numbness or weakness. No blood in her urine or stool. She denies any loss of bowel or bladder. No saddle anesthesias. No fever. She took some Tylenol this morning with minimal relief. States she has Valium and tramadol at home but she did not take either. On exam tenderness over left lower ribs. Tenderness left-sided back. Tender over left knee and left shoulder. Neurovascularly intact. X-ray of shoulder ribs back and knee are normal. Gave Norflex and Toradol and feeling better. Patient will take Valium and tramadol have at home. Patient understands agrees with plan. - Diagnoses Differential Diagnosis/HQI/PQRI: Positive: Fracture, Herniated Disc, Strain Provider Diagnoses: Rib pain on left side, Back pain, Left knee pain, Left shoulder pain, Fall Discharge - Sign-Out/Discharge Documenting (check all that apply): Patient Departure - Discharge Plan Condition: Good Disposition: HOME Patient Education Materials: Back Pain (ED), Rib Contusion (ED) Referrals: Bill Holt MD [Primary Care Provider] - Additional Instructions: add on tramadol every 12 hours as needed for pain ice area take deep breaths throughout the day follow up with primary Return to ED if develop any new or worsening symptoms - Billing Disposition and Condition Condition: GOOD Disposition: Home
[2018-11-16 15:39] VITALS: BP 108/62
== END 2018-11-16 15:37 | disposition home or self-care (01) ==
LOC: ED 12:59
DX: R07.81 Pleurodynia (principal); M54.9 Dorsalgia, unspecified; M25.562 Pain in left knee; M25.512 Pain in left shoulder; I10 Essential (primary) hypertension; Z88.1 Allergy status to other antibiotic agents; Z88.5 Allergy status to narcotic agent; Z88.7 Allergy status to serum and vaccine; Z88.2 Allergy status to sulfonamides; Z88.8 Allergy status to other drugs, medicaments and biological substances
CPT/HCPCS: 72131; 96372; 99281; J1885; J2360

== ENCOUNTER → 2018-12-06 12:02 | Emergency (ER) | payer MEDICARE ==
[~2018-12-06 12:02] MED LIST: Bupivacaine 0.5%* 50 ML VIAL INJ ONE
--- NOTE | 2018-12-06 13:26 | ED ---
Back Pain - HPI Summary HPI Summary: This patient is a 88 year old female who is presenting to the emergency room with a cc of severe back pain since 11-16-18. She is rating the pain 8/10 in severity. Pt states the pain is worse with pivoting at the waist. The patient fell on 11-15-[address] on 11-16-18. She is a pain management patient but did not call there because she didnt want to wait. She receives trigger point injections with relief. She is denying pain into LEs. She also denies numbness , weakness, and incontinence. She has seen a PT in the past for vertigo and refuses to see a chiro as she does not like them. - History of Current Complaint Chief Complaint: EDBackInjuryPain Stated Complaint: BACK PAIN Time Seen by Provider: 12/06/18 13:14 Hx Obtained From: Patient Onset/Duration: Lasting Weeks, Still Present Onset/Duration: Traumatic, Still Present Timing: Constant Back Pain Location: Is Diffuse Severity Initially: Severe Severity Currently: Severe Pain Intensity: 8 Pain Scale Used: 0-10 Numeric Aggravating Symptom(s): Other - twisting Associated Signs And Symptoms: Positive: Negative - numbness, weakness, and incontinence. - Allergies/Home Medications Allergies/Adverse Reactions: Allergies Allergy/AdvReac Type Severity Reaction Status Date / Time bupropion [From Wellbutrin] Allergy Unknown Unknown Verified 12/06/18 12:08 Reaction Details ciprofloxacin [From Cipro] Allergy Unknown Unknown Verified 12/06/18 12:08 Reaction Details Influenza Virus Vaccines Allergy Unknown Unknown Verified 12/06/18 12:08 Reaction Details nitrofurantoin Allergy Unknown Unknown Verified 12/06/18 12:08 [From Macrobid] Reaction Details pregabalin [From Lyrica] Allergy Unknown Unknown Verified 12/06/18 12:08 Reaction Details Sulfa (Sulfonamide Allergy Unknown Unknown Verified 12/06/18 12:08 Antibiotics) Reaction Details clopidogrel [From Plavix] AdvReac Unknown Bleeding Verified 12/06/18 12:08 codeine AdvReac Unknown GI Upset Verified 12/06/18 12:08 PMH/Surg Hx/FS Hx/Imm Hx Endocrine/Hematology History: Reports: Hx Thyroid Disease - hypothyroidism Denies: Hx Anticoagulant Therapy, Hx Diabetes Cardiovascular History: Reports: Hx Angina - prinzemetals angina, Hx Hypertension - CONTROLLED WITH MEDICATION, Other Cardiovascular Problems/ Disorders - left bundle branch block Denies: Hx Pacemaker/ICD Respiratory History: Reports: Other Respiratory Problems/Disorders - PT STATES HX OF PNEUMONIA GI History: Reports: Hx Gall Bladder Disease - surgery 1995, Hx Gastroesophageal Reflux Disease - 08/26 resolved, Hx Irritable Bowel History: Reports: Hx Kidney Stones - week of september Comment Only: Other Problems/Disorders - KNOWN BILAT KIDNEY STONES FOR A WHILE BEING FOLLOWED BY UROLOGY Musculoskeletal History: Reports: Hx Arthritis, Hx Back Problems, Hx Fibromyalgia, Hx Osteoporosis, Other Musculoskeletal History - arthritis, mid back pain no trauma, SHINGLES 05/2012, FALL 06/2012 Sensory History: Reports: Hx Cataracts - surgery 1999 Denies: Hx Hearing Aid Opthamlomology History: Reports: Hx Cataracts - surgery 1999 Neurological History: Reports: Hx Transient Ischemic Attacks (TIA), Other Neuro Impairments/Disorders - PAIN CLINIC PATIENT Psychiatric History: Reports: Hx Anxiety Denies: Hx Panic Disorder - Cancer History Hx Chemotherapy: No Hx Radiation Therapy: No - Surgical History Surgery Procedure, Year, and Place: Total Abdominal Hysterectomy/bso 1984. bladder suspension 1984. left great toe 1992. breast cysts 1983. cholecystectomy 1995. hand surgery 2003. left thumb. cataracts [facility] - Immunization History Immunizations Up to Date: Yes Infectious Disease History: No Infectious Disease History: Reports: Hx Shingles - 2011 Denies: Traveled Outside the [place] in Last 30 Days - Family History Known Family History: Positive: Non-Contributory - Social History Alcohol Use: Rare Alcohol Amount: 5 drinks per week Substance Use Type: Reports: None Substance Use Comment - Amount & Last Used: oxycodone, valium Smoking Status (MU): Never Smoked Tobacco Have You Smoked in the Last Year: No Review of Systems Negative: Fever Genitourinary: Negative - incontinence. Musculoskeletal: Negative - incontinence. 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 2+ patellar reflex Neuro: normal, sensory motor intact, A&Ox3 Triage Information Reviewed: Yes Vital Signs On Initial Exam: Initial Vitals Temp Pulse Resp BP Pulse Ox 96.9 F 69 17 105/73 98 12/06/18 12:03 12/06/18 12:03 12/06/18 12:03 12/06/18 12:03 12/06/18 12:03 Vital Signs Reviewed: Yes Procedures - Procedure Summary Procedure Summary: Trigger point injection for control of lumbar back pain: Description: The patient was laid supine and the lumbar musculature was cleaned with alcohol. She was injected with a total of 15 cc of 0.5% bupivacaine and divided aliquots. This was massaged through the tissue and gave near immediate pain relief. She tolerated this well without complication. Diagnostics - Vital Signs Vital Signs Temp Pulse Resp BP Pulse Ox 12/06/18 12:03 96.9 F 69 17 105/73 98 - Laboratory Lab Statement: Any lab studies that have been ordered have been reviewed, and results considered in the medical decision making process. Re-Evaluation - Re-Evaluation First Eval Re-Evaluation Time: 13:59 Change: Improved Comment: Her pain has decreased. Back Pain Course/Dx - Course Course Of Treatment: Patient with chronic muscular back pain improved in the past by trigger point injections. Trigger point injection was given here and discomfort is much better. She had CT scan on 1 after falling. No trauma since. No radicular symptoms. No bowel or bladder issues. Neuro intact. Assessment/Plan: Nurse's note reviewed - Diagnoses Differential Diagnosis/HQI/PQRI: Positive: Arthritis, Cauda Equina Syndrome, Compressive Cord Syndrome, Strain, Sprain Provider Diagnoses: Exacerbation of chronic back pain Discharge - Sign-Out/Discharge Documenting (check all that apply): Patient Departure - Discharge Plan Condition: Stable Disposition: HOME Patient Education Materials: Chronic Back Pain (DC), Lower Back Exercises (ED) Referrals: Bill Holt MD [Primary Care Provider] - Additional Instructions: Prescription for Physical Therapy. Range of motion exercises, stretching. Follow-up with pain management and physical therapy. Return with fever, worse, numbness/weakness, new symptoms or other concerns. Continue prescribed medications such as Flexeril. - Billing Disposition and Condition Condition: STABLE Disposition: Home - Attestation Statements Document Initiated by Camilleibsally: Yes Documenting Scribe: Gian Shrestha Provider For Whom Lilian is Documenting (Include Credential): Moises Ma MD Scribe Attestation: Gian Patel , scribed for Moises Ma MD on 12/06/18 at 1508. Scribe Documentation Reviewed: Yes Provider Attestation: The documentation as recorded by the Gian nieves accurately reflects the service I personally performed and the decisions made by Moises shirley MD Status of Scribe Document: Viewed
[2018-12-06 15:16] VITALS: BP 149/69
== END | disposition home or self-care (01) ==
LOC: ED 12:02
DX: M54.9 Dorsalgia, unspecified (principal); G89.29 Other chronic pain; E03.9 Hypothyroidism, unspecified; Z88.2 Allergy status to sulfonamides; I10 Essential (primary) hypertension; I20.1 Angina pectoris with documented spasm; Z87.442 Personal history of urinary calculi; F41.9 Anxiety disorder, unspecified; Z86.73 Personal history of transient ischemic attack (TIA), and cerebral infarction without residual deficits; I44.7 Left bundle-branch block, unspecified
CPT/HCPCS: 20600; 99281

== ENCOUNTER → 2019-01-05 14:02 | Emergency (ER) | payer MEDICARE ==
--- NOTE | 2019-01-05 14:32 | ED ---
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 Patient has a lac to her R temporal scalp and an abrasion to her L forehead. She was in her slippers in the garage and slipped on some grit. She hit her head on a cast iron pipe and concrete, and landed on her L- side. Associated sx: L sided rib cage pain, L-sided back pain. She denies CP, SOB, ADLER, syncope, neck pain. At baseline, she has some chest congestion and a known L kidney stone. She takes a baby aspirin daily, Nadolol, Nifedipine, thyroid medication, eye drops for glaucoma, and occasionally Xanax. She sees Dr. Echavarria, cardiology. PMHx: Prinzmetal angina, LBBB. Surgeries include: cholecystectomy, complete hysterectomy, bladder repair, three breast surgeries. Vitals at bedside: HR: 74 bpm, BP: 127/60. Home Medications Medication Instructions Recorded Confirmed Type Atorvastatin* [Lipitor*] 10 mg PO BEDTIME 09/06/12 10/04/18 History Esomeprazole(NF) [Nexium(NF)] 40 mg PO DAILY PRN 09/06/12 10/04/18 History Levothyroxine TAB* [Synthroid TAB*] 50 mcg PO DAILY 09/06/12 10/04/18 History Nadolol TAB* [Corgard TAB*] 20 mg PO DAILY 09/06/12 10/04/18 History Nitroglycerin TAB 0.4 MG* 0.4 mg PO SEE INSTRUCTIONS PRN 09/06/12 10/04/18 History Timolol 0.5% OPTH.ALFREDITO* [Timoptic 1 drop LEFT EYE DAILY 09/06/12 10/04/18 History 0.5% Opth*] Triamterene/HCTZ 37.5-25 MG* 1 cap PO EVERY OTHER DAY 09/06/12 10/04/18 History [Dyazide*] NIFEdipine [Adalat cc] 30 mg PO DAILY 05/15/13 10/04/18 History ALPRAZolam [Xanax] 0.25 mg PO TID PRN 08/13/14 10/04/18 History Travoprost Z 0.004% OPHTH (NF) 1 drop BOTH EYES DAILY 08/13/14 10/04/18 History [Travatan Z 0.004% OPTH (NF)] Cyclobenzaprine TAB* [Flexeril 10 10 mg PO BEDTIME PRN 07/30/17 10/04/18 History MG TAB*] traMADol TAB* [Ultram*] 50 mg PO BID PRN 07/30/17 10/04/18 History Aspirin 81 mg CHEW TAB* [Aspirin 81 mg PO BEDTIME 12/30/17 10/04/18 History Low Dose TAB*] Montelukast Sodium TAB* [Singulair 10 mg PO DAILY 12/30/17 10/04/18 History TAB*] Gabapentin CAP(*) [Neurontin 300 300 mg PO BID 10/04/18 10/04/18 History CAP(*)] Albuterol HFA INHALER* [Ventolin 1 - 2 puff INH Q6H PRN #1 mdi 11/05/18 Rx HFA Inhaler*] Albuterol HFA INHALER* [Ventolin 1 puff INH Q6H PRN #1 mdi 11/05/18 Rx HFA Inhaler*] - History Of Current Complaint Chief Complaint: EDHeadInjury Stated Complaint: FALL/HEAD INJURY Time Seen by Provider: 01/05/19 14:26 Hx Obtained From: Patient, Family/Copy Writer, EMS Mechanism Of Injury: Fall From A Standing Position Onset/Duration: Started Hours Ago, Traumatic, Still Present Onset of Pain: Immediate, Post Accident Severity Currently: Mild Severity Initially: Mild Pain Intensity: 3 Pain Scale Used: 0-10 Numeric Location of Head Injury: Frontal - Left forehead, Temporal - R Location: Discrete At: - right temporal and left forehead Character: Dull Aggravating Factor(s): Other: - nothing Alleviating Factor(s): Other: - nothing Associated Signs And Symptoms: Other: - Pos: L-sided rib cage pain; L-sided back pain. Neg: CP, SOB, ADLER, syncope, neck pain. - Allergies/Home Medications Allergies/Adverse Reactions: Allergies Allergy/AdvReac Type Severity Reaction Status Date / Time bupropion [From Wellbutrin] Allergy Unknown Unknown Verified 12/06/18 12:08 Reaction Details ciprofloxacin [From Cipro] Allergy Unknown Unknown Verified 12/06/18 12:08 Reaction Details Influenza Virus Vaccines Allergy Unknown Unknown Verified 12/06/18 12:08 Reaction Details nitrofurantoin Allergy Unknown Unknown Verified 12/06/18 12:08 [From Macrobid] Reaction Details pregabalin [From Lyrica] Allergy Unknown Unknown Verified 12/06/18 12:08 Reaction Details Sulfa (Sulfonamide Allergy Unknown Unknown Verified 12/06/18 12:08 Antibiotics) Reaction Details clopidogrel [From Plavix] AdvReac Unknown Bleeding Verified 12/06/18 12:08 codeine AdvReac Unknown GI Upset Verified 12/06/18 12:08 PMH/Surg Hx/FS Hx/Imm Hx Previously Healthy: No Endocrine/Hematology History: Reports: Hx Thyroid Disease - hypothyroidism Denies: Hx Anticoagulant Therapy, Hx Diabetes Cardiovascular History: Reports: Hx Angina - Prinzemetal's angina, Hx Hypertension - CONTROLLED WITH MEDICATION, Other Cardiovascular Problems/ Disorders - left bundle branch block Denies: Hx Pacemaker/ICD Respiratory History: Reports: Hx Pneumonia GI History: Reports: Hx Gall Bladder Disease - surgery 1995, Hx Gastroesophageal Reflux Disease - 08/26 resolved, Hx Irritable Bowel History: Reports: Hx Kidney Stones - week of september Comment Only: Other Problems/Disorders - KNOWN BILAT KIDNEY STONES FOR A WHILE BEING FOLLOWED BY UROLOGY Musculoskeletal History: Reports: Hx Arthritis, Hx Back Problems, Hx Fibromyalgia, Hx Osteoporosis, Other Musculoskeletal History - arthritis, mid back pain no trauma, SHINGLES 05/2012, FALL 06/2012 Sensory History: Reports: Hx Cataracts - surgery 1999 Denies: Hx Hearing Aid Opthamlomology History: Reports: Hx Cataracts - surgery 1999 Neurological History: Reports: Hx Transient Ischemic Attacks (TIA), Other Neuro Impairments/Disorders - PAIN CLINIC PATIENT Psychiatric History: Reports: Hx Anxiety Denies: Hx Panic Disorder - Cancer History Hx Chemotherapy: No Hx Radiation Therapy: No - Surgical History Surgery Procedure, Year, and Place: Total Abdominal Hysterectomy/bso 1984. bladder suspension 1984. left great toe 1992. breast cysts 1983. cholecystectomy 1995. hand surgery 2003. left thumb. cataracts [facility] Infectious Disease History: No Infectious Disease History: Reports: Hx Shingles - 2011 Denies: Traveled Outside the [place] in Last 30 Days - Family History Family History: microscopic hematuria (twin sister) - Social History Occupation: Retired Lives: Alone Alcohol Use: Rare Alcohol Amount: 5 drinks per week Substance Use Type: Reports: Prescribed Substance Use Comment - Amount & Last Used: oxycodone, valium - prescribed Hx Tobacco Use: No Smoking Status (MU): Never Smoked Tobacco Have You Smoked in the Last Year: No Review of Systems Constitutional: Negative Eyes: Negative Negative: Chest Pain Negative: Shortness Of Breath Gastrointestinal: Negative Positive: no symptoms reported Musculoskeletal: Other - pos: L-sided rib cage pain; L-sided back pain Negative: Other - neg: neck pain Skin: Other - pos: lac to R-side of head; abrasion to L-forehead Negative: Headache, Syncope Psychological: Normal All Other Systems Reviewed And Are Negative: Yes Physical Exam - Summary Physical Exam Summary: Appearance: Well-appearing, moderate pain distress, well-nourished Skin: Warm, color reflects adequate perfusion, dry. Abrasion of 5 cm above L eyebrow with swelling; at the base of the abrasion, there is a suturable lac of 2cm. There is a 4cm curvilinear lac to R temporal head, not deep to galea, with bleeding controlled. Head: Normal Head/Face inspection, atraumatic Eyes: Conjunctiva clear, PERRL, EOMI, hematoma above left eyebrow as above ENT: Normal inspection, no Lowe[employer] signs Neck: Supple, no nodes, no JVD, no spinal tenderness Respiratory: Lungs clear, normal breath sounds, no respiratory distress. Left lateral chest wall tenderness, Chest Wall: No bony tenderness, no crepitus, no ecchymosis. Cardio: RRR, No murmur, pulses normal, brisk capillary refill Abdomen: Soft,non-tender, no upper quadrant tenderness, nondistended, no guarding, no rebound Bowel sounds: Present Musculoskeletal: Strength Intact/ROM intact, no calf tenderness, no edema. Tenderness to posterior L flank Psychological: Normal Neuro: Alert, muscle tone normal, no focal deficit Triage Information Reviewed: Yes Vital Signs On Initial Exam: Initial Vitals Temp Pulse Resp BP Pulse Ox 98.3 F 72 17 127/60 98 01/05/19 14:15 01/05/19 14:15 01/05/19 14:15 01/05/19 14:15 01/05/19 14:15 Vital Signs Reviewed: Yes - Fabiana Coma Scale Best Eye Response: 4 - Spontaneous Best Motor Response: 6 - Obeys Commands Best Verbal Response: 5 - Oriented Coma Scale Total: 15 Diagnostics - Vital Signs Vital Signs Temp Pulse Resp BP Pulse Ox 01/05/19 14:15 98.3 F 72 17 127/60 98 - Laboratory Result Diagrams: 01/05/19 14:43 01/05/19 14:43 Lab Statement: Any lab studies that have been ordered have been reviewed, and results considered in the medical decision making process. - Radiology CXR Radiology Interpretation Completed By: Radiologist Summary of Radiographic Findings: IMPRESSION: No active cardiopulmonary dz is noted. ED provider has reviewed this report. - CT BRAIN CT CT Interpretation Completed By: Radiologist Summary of CT Findings: IMPRESSION: No acute intracranial pathology. ED provider has reviewed this report. C-SPINE CT CT Interpretation Completed By: Radiologist Summary of CT Findings: IMPRESSION: OSTEOPENIA. DEGENERATIVE DISC DISEASE AND OSTEOARTHRITIS. NO ACUTE OSSEOUS INJURY TO THE CERVICAL SPINE. ED provider has reviewed this report. - EKG 14:41 ST Segment: Non-Specific Ectopy: None EKG Comparison: Other - as compared with EKG on 03/24/15, LBBB appears new. Summary of EKG Findings: An EKG at 14:41 reveals SR 71 bpm with 1st degree AVblock, nml QTc, LBBB (not new per patient). No STEMI. No acute changes. Re-Evaluation - Re-Evaluation 1 Re-Evaluation Time: 18:51 Change: Improved Comment: Patient's last tetanus was 6 years ago. Discussing plans for discharge. VERONICA Martinez sutured pt's lacs. Procedure note reviewed. Lakisha to right temporal area and sutures above left eyebrow. 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 Patient has a lac to her R temporal scalp and an abrasion to her L forehead. She was in her slippers in the garage and slipped on some grit. She hit her head on a cast iron pipe and concrete, and landed on her L-side. Associated sx: L sided rib cage pain, L-sided back pain. She denies CP, SOB, ADLER , syncope, neck pain. At baseline, she has some chest congestion and a known L kidney stone. She takes a baby aspirin daily, Nadolol, Nifedipine, thyroid medication, eye drops for glaucoma, and occasionally Xanax. She sees Dr. Echavarria, cardiology. PMHx: prinzmetal angina, LBBB. Allergies noted. Pt medications reviewed this visit. UA results show 3+ leukocyte esterase, 1+ WBC, hyaline casts present, squamous epithelia present, decreased specific gravity. Brain CT , C-Spine CT and CXR are unremarkable. An EKG at 14:41 reveals SR 71 bpm with 1st degree AVblock, nml QTc, LBBB (not new per patient). No STEMI. No acute changes. Compared with EKG on 03/24/15, LBBB appears new, but pt knew she had a hx of LBBB, so LBBB on today's EKG is not new for the patient, just new for [facility] records. VERONICA Amanda Mustafa will suture lacs. Pt and daughter agree with discharge. Pt will follow up with Dr. Holt in 2 days. - Diagnoses Differential Diagnosis/HQI/PQRI: Cerebral Contusion, Cervical Sprain, Concussion Without LOC, Hematoma, Intracranial Bleed, Laceration Provider Diagnoses: Fall, Facial laceration, Scalp laceration Discharge - Sign-Out/Discharge Documenting (check all that apply): Patient Departure - D/C Patient Received Moderate/Deep Sedation with Procedure: No - Discharge Plan Condition: Stable Disposition: HOME Patient Education Materials: Care For Your Stitches (ED), Laceration (ED), Staple Care (ED), Fall Prevention (ED) Referrals: Bill Holt MD [Primary Care Provider] - 5 Days (You should have your lakisha removed in 7 days, and the sutures on your face removed in 5 days. ) Additional Instructions: Keep your sutures and your lakisha clean and dry. Watch for infection. The sutures come out in 5 days. The lakisha come out in 7 days. The RETURN TO THE EMERGENCY DEPARTMENT FOR CHANGING OR WORSENING SYMPTOMS. - Billing Disposition and Condition Condition: STABLE Disposition: Home - Attestation Statements Document Initiated by Scribe: Yes Documenting Scribe: Brooke Echavarria Provider For Whom Scribe is Documenting (Include Credential): Dr. Kailyn Boyle MD Scribe Attestation: Brooke Patel, scribed for Dr. Kailyn Boyle MD on 01/09/19 at 2055. Scribe Documentation Reviewed: Yes Provider Attestation: The documentation as recorded by the scribe, Brooke Echavarria accurately reflects the service I personally performed and the decisions made by me, Dr. Kailyn Boyle MD Status of Camilleibsally Document: Viewed
[2019-01-05 14:51] LABS: ABS Basophils 0 10^3/ul (0-0.2); ABS Eosinophils 0.4 10^3/ul (0-0.6); ABS Lymphocytes 0.9 10^3/ul (1.0-4.8); ABS Monocytes 0.7 10^3/ul (0-0.8); ABS Neutrophils 4.1 10^3/ul (1.5-7.7); ABS Nucleated RBC 0 10^3/ul; Eosinophil % 7.1 %; Hematocrit 38 % (35-47); Hemoglobin 13.4 g/dl (12.0-16.0); Lymphocyte % 15.2 %; Mean Corpuscular HGB Conc 35 g/dl (31-36); Mean Corpuscular Hemoglobin 36 pg (27-31); Mean Corpuscular Volume 102 fL (80-97); Nucleated Red Blood Cells % 0; Platelet Count 155 10^3/ul (150-450); Red Blood Count 3.73 10^6/ul (4.00-5.40); Red Cell Distribution Width 13 % (10.5-15); White Blood Count 6.2 10^3/ul (3.5-10.8)
[2019-01-05 15:06] LABS: Albumin 4.2 g/dL (3.2-5.2); Albumin/Globulin Ratio 1.7 (1-3); BUN/Creatinine Ratio 27.8 (8-20); Calcium 9.9 mg/dL (8.6-10.3); EGFR African American 83.5 (>60); Globulin 2.5 g/dL (2-4); Potassium 4.6 mmol/L (3.5-5.0); Total Bilirubin 0.6 mg/dL (0.2-1.0); Total Protein 6.7 g/dL (6.4-8.9)
[2019-01-05 15:08] LABS: Activated Partial Thrombo Time 32.2 seconds (26.0-36.3)
[2019-01-05 16:23] LABS: Urine Appearance Cloudy; Urine Bacteria Absent (Absent); Urine Bilirubin Negative (Negative); Urine Blood Negative (Negative); Urine Color Yellow; Urine Glucose Negative (Negative); Urine Ketones Negative (Negative); Urine Nitrite Negative (Negative); Urine Protein Negative (Negative); Urine Red Blood Cell Trace(0-2/hpf) (Absent); Urine Specific Gravity 1.009 (1.010-1.030); Urine Squamous Epithelial Cell Present (Absent); Urine Urobilinogen Negative (Negative); Urine White Blood Cell 1+(6-10/hpf) (Absent)
--- NOTE | 2019-01-05 18:26 | PN ---
Progress Note - Progress Note Date of Service: 01/05/19 Note: laceration repair done by Amanda MARTIN 4cm by 1/2cm on right side of scalp that cleaned with 200cc and closed with 4 lynda 5cm by 1/2cm laceration/ abrasion of left forehead that cleaned with 300cc and closed with 4 sutures prolene 5-0
[2019-01-05 18:55] VITALS: BP 124/76
== END | disposition home or self-care (01) ==
LOC: ED 14:02
DX: S01.81XA Laceration without foreign body of other part of head, initial encounter (principal); S01.01XA Laceration without foreign body of scalp, initial encounter; W01.0XXA Fall on same level from slipping, tripping and stumbling without subsequent striking against object, initial encounter; Y92.015 Private garage of single-family (private) house as the place of occurrence of the external cause; Z79.82 Long term (current) use of aspirin; I44.7 Left bundle-branch block, unspecified; F41.9 Anxiety disorder, unspecified; Z86.73 Personal history of transient ischemic attack (TIA), and cerebral infarction without residual deficits; M85.80 Other specified disorders of bone density and structure, unspecified site
CPT/HCPCS: 12002; 12013; 36415; 70450; 71045; 72125; 80053; 81003; 81015; 85025; 85610; 85730; 87086; 93005; 99283

== ENCOUNTER → 2019-03-13 16:28 | Emergency (ER) | payer MEDICARE ==
[~2019-03-13 16:28] MED LIST changes: -Bupivacaine 0.5%* 50 ML VIAL INJ ONE; +Diazepam TAB(*) 5 MG PO ONE
--- OUTSIDE RECORDS SUMMARY | 2019-03-13 17:14 | XMS REPORT | Continuity of Care Document ---
:1930 External Reference #:[id number] Author Name Estefani Chante Care Team Providers Name Role Phone Bill Holt MD Primary Care Physician Unavailable Payers Date Identification Numbers Payment Provider Subscriber Policy Number: [id number] Medicare Mikaela Parks [place] PayID: [id number] [address] [place] [address] Expires: 2018 Policy Number: [id number] Medicare Mikaela Parks [place] PayID: [id number] [address] [place] [address] Policy Number: [id number] [facility] Mikaela Parks [place] PayID: [id number] [address] [place] [address] Advance Directives Description No Information Available Problems Date Description Provider Status Onset: 07/18/2015 Essential hypertension Michael Echavarria M.D. Active Family History Date Family Member(s) Observation Comments Father due to Stroke () Father due to Heart Attack () Mother Thyroid Disease Hypothyroid Mother due to Natural Causes () Siblings 3 2 living sisters, 1 sister with melanoma and COPD, passed from CHF Social History Type Date Description Comments Sex Unknown Marital Status Lives With Alone Occupation Retired Tobacco Use Start: Unknown Never Smoked Cigarettes Smoking Status Reviewed: 02/28/19 Never Smoked Cigarettes ETOH Use Consumes 1 [...] 00/00 Hx 1 Darlow, /0000 injection Bill Cano - monthly 10/31 Allergy 00/00 Hx Tablets 10mg 1 by mouth Unknown /0000 every day - 08/30 Zyrtec Allergy 00/00 Hx daily Unknown /0000 - 10/31 Cyclobenzaprine HCL 00/00 Hx Tablets 10mg Unknown /0000 - 09/15 Ibandronate Sodium 0000 Hx Tablets 150mg 1 tablet Unknown /0000 po monthly - 10/31 Tramadol HCL 00/00 Hx Tablets 50mg 1 tablet Unknown /0000 [...] 05/17/ Administered Injection Sherie Regadenoson, 0.1 2012 Ogle, MG M.D. Technetium TC 05/17/ Administered Injection Sherie 99M Tetrofosmin, 2012 Ogle, Per Unit Dose Up M.D. To 40 Millicuries Immunizations Description No Information Available Vital Signs Date Vital Result Comment 02/28/2019 1:21pm Height 61.5 inches 5'1.50" Weight 145.00 lb Heart Rate 74 /min BP Systolic 136 mmHg BP Diastolic 88 mmHg Respiratory Rate 20 /min Body Temperature 97.0 F Pain Level 8 BMI (Body Mass Index) 27.0 kg/m2 10/28/2018 12:07pm Height 61.5 inches 5'1.50" Weight [...] Result H/L Range Note Laboratory test 03/24/2015 [facility] Troponin I 0.00 ng/mL N <0.03 1 finding [address] [place] [address] [phone] B Type Natriuretic Peptide 88 pg/mL N 2 Comp Metabolic Panel 03/24/2015 [facility] Sodium 128 mmol/L Low 133-145 [address] [place] [address] [phone] Potassium 3.8 mmol/L N 3.5-5.0 Chloride 98 [...] 88.3 N >60 3 Laboratory test 03/24/2015 [facility] Lactic Acid 1.5 mmol/L N 0.5-2.2 finding [address] [place] [address] [phone] CBC Auto Diff 03/24/2015 [facility] White Blood 6.1 10^3/uL N 4.8-10.8 [address] [facility] [place] [address] [phone] Red Blood Count 4.12 10^6/uL N 4.0-5.4 [...] 0.03 ng/mL Not supportive of diagnosis of TN 0.03 - 0.50 ng/mL Indeterminate: suggest serial studies if clinically indicated. Greater than 0.5 ng/mL Consistent with diagnosis of TN 2 >100 to <200 pg/mL: likely compensated [...] dialysis) Procedures Date Code Description Status 10/28/2018 08638 EKG Tracing & Interpretation Completed 08/16/2018 89248 Inject/Drain Joint/Bursa Major W/O US Completed 06/02/2018 14093 EKG Tracing & Interpretation Completed 10/14/2017 42661 Diffusing Capacity Completed 10/14/2017 89051 Plethysmography Determination Lung Volumes & Per Airway Completed Resist 10/14/2017 23810 Pulmonary Stress Test Simple Completed 09/29/2017 60218 ECHO Transthoracic, Real-Time 2D With Doppler And Color Completed Flow 09/29/2017 52951 ECHO Transthoracic, Real-Time 2D With Doppler And Color Completed Flow 09/17/2017 42427 Stress Test Completed 09/17/2017 40438 Myocardial Perfusion Imaging Tomographic (Spect) Multiple Completed Studies 09/06/2017 91119 Holter Monitor Review (24 hr)dr review & interp only Completed 09/02/2017 40101 ECG Monitor/Recording W/Visual Superimposition Scanning Completed 09/02/2017 88635 ECG Monitor/Recording W/Visual Superimposition Scanning Completed 09/02/2017 98254 ECG Monitor/Recording W/Visual Superimposition Scanning Completed 08/31/2017 40687 EKG Tracing & Interpretation Completed 07/17/2016 08980 EKG Tracing & Interpretation Completed 04/30/2016 33931 Inject/Drain Joint/Bursa Major W/O US Completed 03/16/2016 71273 ECHO Transthoracic, Real-Time 2D With Doppler And Color Completed Flow 07/18/2015 09155 EKG Tracing & Interpretation Completed 05/02/2014 90295 EKG Tracing & Interpretation Completed 05/17/2013 14628 Stress Test Completed 05/17/2013 29791 Myocardial Perfusion Imaging Tomographic (Spect) Multiple Completed Studies 03/24/2013 87384 Holter Monitoring 24 HR New Completed 03/21/2013 80155 ECHO Transthoracic, Real-Time 2D With Doppler And Color Completed Flow 03/10/2013 94627 EKG Tracing & Interpretation Completed Encounters Type Date Location Provider Dx Diagnosis Office Visit 10/28/2018 [facility] Michael Johansen I10 Essential ( primary) 12:15p Of Manuel Echavarria M.D. hypertension R06.02 Shortness of breath R94.31 Abnormal electrocardiogram [ECG] [EKG] Office Visit 08/16/2018 3:15p [facility] Fanta Kaufman M25.562 Pain in left Of CDaphneMLeny RINALDI knee M17.12 Unilateral primary osteoarthritis, left knee Office Visit 06/02/2018 3:30p [facility] Michael D. I44.7 Left bundle-branch Of Manuel Echavarria M.D. block, unspecified I10 Essential (primary) hypertension R00.2 Palpitations Office Visit 12/08/2017 10:30a [facility] Michael D. R06.02 Shortness of Of Manuel Echavarria M.D. breath I44.7 Left bundle-branch block, unspecified I10 Essential (primary) hypertension Office Visit 11/01/2017 11:00a [facility]monology And [place]an[place] R06.02 Shortness of Sleep Services Of MD Asad breath Health Outcomes Liaison Office Visit 10/05/2017 1:00p [facility] Michael Johansen I44.7 Left Of [facility] Liaison AT [facility] Daniel Echavarria bundle-branch block, unspecified R00.2 Palpitations R06.02 Shortness of breath Office Visit 08/31/2017 2:00p [facility] Michael Johansen I10 Essential (primary) Of Health Outcomes Liaison AT [facility] Daniel Echavarria hypertension R06.02 Shortness of breath I44.7 Left bundle-branch block, unspecified Office Visit 07/17/2016 11:45a [facility] Michael Johansen I10 Essential (primary) Of Manuel Echavarria M.D. hypertension I49.49 Other premature depolarization R06.02 Shortness of breath Office Visit 04/30/2016 Orthopedic Fanta Kaufman, M17.12 Unilateral primary 11:00a Services Of osteoarthritis, left C.M.A. knee M25.462 Effusion, left knee Office Visit 07/18/2015 12:15p [facility] Michael D. 401.9 Hypertension Of Manuel Echavarria M.D. Unspec 785.1 Palpitations Office Visit 05/02/2014 10:30a [facility] Michael D. 427.69 Premature Beats Of Manuel Echavarria M.D. Other 401.9 Hypertension Unspec Office Visit 03/29/2013 2:00p [facility] Michael Johansen 427.69 Premature Beats Of Manuel Echavarria M.D. Other 401.9 Hypertension Unspec Office Visit 03/10/2013 11:15a [facility] Michael Johansen 785.1 Palpitations Of Manuel Echavarria M.D. 786.05 Shortness Of Breath 401.9 Hypertension Unspec Office Visit 02/22/2013 10:45a Orthopedic Rhett Guardado, 719.45 Pain Joint Services Of [facility] Pelvic Region & Thigh 724.3 Sciatica Office Visit 10/21/2012 11:45a Orthopedic Deidre Ocampo 719.45 [facility] Of [facility] VERMA Pelvic Region & Thigh Office Visit 07/21/2012 11:00a Orthopedic Rhett 719.45 [facility] Of [facility] Guardado M.D. Pelvic Region & Thigh Office Visit 06/02/2012 11:00a Orthopedic Rhett 724.3 Sciatica Services Of [facility] Guardado M.D. Plan of Treatment 02/28/2019 - Joseph Jeffries M.D.M51.86 Other intervertebral disc disorders, lumbar regionFollow up:Follow up: Family medicine Chronic mid back pain on the left and another fall that injured the area January 05. Today we checked the mid spine for fracture and none seen. I believe the chronic back pain is disc disease, especially Lumbar 2-3, and spine arthritis and chronic strains and sprains. Therapy referral done, for gently spine movements and strengthening Ice, heat, and tylenol are OK for the spine pain Should use a walker for a few months (to take some strain off of her spine) Her past studies have not shown stenosis in the neck or back
--- NOTE | 2019-03-13 18:08 | ED ---
Back Pain - HPI Summary HPI Summary: Patient with history of chronic back pain complains of acute exacerbation of same back pain starting today when she bent over to lift something. States she took Flexeril 10 mg at noon, Tylenol 500 mg and Aleve 1 tablet and 1 PM with little improvement. Patient states pain is along whole spine which radiates to left, worse with sitting and standing. States this is the same as her usual chronic pain just worse. Patient ambulatory with walker at baseline, states she is still ambulatory since event. Denies any other pain, symptoms or injury including loss of sensation or function in bilateral lower extremities, incontinence, urinary retention, fall. - History of Current Complaint Chief Complaint: EDBackInjuryPain Stated Complaint: BACK PAIN PER EMS Time Seen by Provider: 03/13/19 16:44 Hx Obtained From: Patient Onset/Duration: Sudden Onset, Lasting Hours Onset/Duration: Started Hours Ago Timing: Constant Severity Initially: Mild Severity Currently: Mild Pain Intensity: 3 Pain Scale Used: 0-10 Numeric Character: Aching Aggravating Symptom(s): Movement, Bending, Walking Alleviating Symptom(s): Rest, Position Associated Signs And Symptoms: Positive: Negative - Allergies/Home Medications Allergies/Adverse Reactions: Allergies Allergy/AdvReac Type Severity Reaction Status Date / Time bupropion [From Wellbutrin] Allergy Unknown Unknown Verified 03/13/19 16:30 Reaction Details ciprofloxacin [From Cipro] Allergy Unknown Unknown Verified 03/13/19 16:30 Reaction Details Influenza Virus Vaccines Allergy Unknown Unknown Verified 03/13/19 16:30 Reaction Details nitrofurantoin Allergy Unknown Unknown Verified 03/13/19 16:30 [From Macrobid] Reaction Details pregabalin [From Lyrica] Allergy Unknown Unknown Verified 03/13/19 16:30 Reaction Details Sulfa (Sulfonamide Allergy Unknown Unknown Verified 03/13/19 16:30 Antibiotics) Reaction Details clopidogrel [From Plavix] AdvReac Unknown Bleeding Verified 03/13/19 16:30 codeine AdvReac Unknown GI Upset Verified 03/13/19 16:30 PMH/Surg Hx/FS Hx/Imm Hx Endocrine/Hematology History: Reports: Hx Thyroid Disease - hypothyroidism Denies: Hx Anticoagulant Therapy, Hx Diabetes Cardiovascular History: Reports: Hx Angina - Prinzemetal's angina, Hx Hypertension - CONTROLLED WITH MEDICATION, Other Cardiovascular Problems/ Disorders - left bundle branch block Denies: Hx Pacemaker/ICD Respiratory History: Reports: Hx Pneumonia, Other Respiratory Problems/ Disorders - PT STATES HX OF PNEUMONIA GI History: Reports: Hx Gall Bladder Disease - surgery 1995, Hx Gastroesophageal Reflux Disease - 08/26 resolved, Hx Irritable Bowel History: Reports: Hx Kidney Stones - week of september Comment Only: Other Problems/Disorders - KNOWN BILAT KIDNEY STONES FOR A WHILE BEING FOLLOWED BY UROLOGY Musculoskeletal History: Reports: Hx Arthritis, Hx Back Problems, Hx Fibromyalgia, Hx Osteoporosis, Other Musculoskeletal History - arthritis, mid back pain no trauma, SHINGLES 05/2012, FALL 06/2012 Sensory History: Reports: Hx Cataracts - surgery 1999 Denies: Hx Hearing Aid Opthamlomology History: Reports: Hx Cataracts - surgery 1999 Neurological History: Reports: Hx Transient Ischemic Attacks (TIA), Other Neuro Impairments/Disorders - PAIN CLINIC PATIENT Psychiatric History: Reports: Hx Anxiety Denies: Hx Panic Disorder - Cancer History Hx Chemotherapy: No Hx Radiation Therapy: No - Surgical History Surgery Procedure, Year, and Place: Total Abdominal Hysterectomy/bso 1984. bladder suspension 1984. left great toe 1992. breast cysts 1983. cholecystectomy 1995. hand surgery 2003. left thumb. cataracts [facility] Infectious Disease History: No Infectious Disease History: Reports: Hx Shingles - 2011 Denies: Traveled Outside the [place] in Last 30 Days - Family History Known Family History: Positive: Non-Contributory Family History: microscopic hematuria (twin sister) - Social History Alcohol Use: Rare Alcohol Amount: 5 drinks per week Hx Substance Use: No Substance Use Type: Reports: None Substance Use Comment - Amount & Last Used: oxycodone, valium - prescribed Hx Tobacco Use: No Smoking Status (MU): Never Smoked Tobacco Have You Smoked in the Last Year: No Review of Systems Constitutional: Negative Eyes: Negative ENT: Negative Cardiovascular: Negative Respiratory: Negative Gastrointestinal: Negative Genitourinary: Negative Musculoskeletal: Other Skin: Negative Neurological: Negative Psychological: Normal All Other Systems Reviewed And Are Negative: Yes Physical Exam - Summary Physical Exam Summary: No pain with palpation of spine. Tenderness to palpation along paraspinal muscles of lower thoracic spine. PMS intact distally on bilateral lower extremities. Patient in no apparent distress. Abdomen soft nontender. Lungs clear to auscultation bilaterally. RRR. Triage Information Reviewed: Yes Vital Signs On Initial Exam: Initial Vitals Temp Pulse Resp BP Pulse Ox 98.1 F 73 18 119/57 97 03/13/19 16:30 03/13/19 16:30 03/13/19 16:30 03/13/19 16:30 03/13/19 16:30 Vital Signs Reviewed: Yes Appearance: Positive: Well-Appearing Skin: Positive: Warm Head/Face: Positive: Normal Head/Face Inspection Eyes: Positive: Normal Neck: Positive: Supple Respiratory/Lung Sounds: Positive: Clear to Auscultation Cardiovascular: Positive: Normal Abdomen Description: Positive: Nontender Musculoskeletal: Positive: Normal Neurological: Positive: Normal Psychiatric: Positive: Normal AVPU Assessment: Alert - Fabiana Coma Scale Best Eye Response: 4 - Spontaneous Best Motor Response: 6 - Obeys Commands Best Verbal Response: 5 - Oriented Coma Scale Total: 15 Diagnostics - Vital Signs Vital Signs Temp Pulse Resp BP Pulse Ox 03/13/19 17:30 65 112/61 94 03/13/19 17:12 69 95 03/13/19 17:09 18 03/13/19 17:00 67 137/61 95 03/13/19 16:30 98.1 F 73 18 119/57 97 - Laboratory Lab Statement: Any lab studies that have been ordered have been reviewed, and results considered in the medical decision making process. Back Pain Course/Dx - Course Course Of Treatment: Patient with history of chronic back pain complains of acute exacerbation of same back pain starting today when she bent over to lift something. States she took Flexeril 10 mg at noon, Tylenol 500 mg and Aleve 1 tablet and 1 PM with little improvement. Patient states pain is along whole spine which radiates to left, worse with sitting and standing. States this is the same as her usual chronic pain just worse. Patient ambulatory with walker at baseline, states she is still ambulatory since event. Denies any other pain , symptoms or injury including loss of sensation or function in bilateral lower extremities, incontinence, urinary retention, fall. Physical exam:No pain with palpation of spine. Tenderness to palpation along paraspinal muscles of lower thoracic spine. PMS intact distally on bilateral lower extremities. Patient in no apparent distress. Abdomen soft nontender. Lungs clear to auscultation bilaterally. RRR. Vital signs within normal limits. Back pain rated at 3. Patient states pain completely resolved with Valium 5 mg by mouth. Patient ambulated in the ED to the bathroom with walker per her baseline with no indication of pain. Patient states she feels better. Ambulated to the bathroom at baseline. - Diagnoses Provider Diagnoses: Acute exacerbation of chronic low back pain Discharge - Sign-Out/Discharge Documenting (check all that apply): Patient Departure Patient Received Moderate/Deep Sedation with Procedure: No - Discharge Plan Condition: Stable Disposition: HOME Patient Education Materials: Back Pain (ED) Referrals: Bill Holt MD [Primary Care Provider] - Additional Instructions: Follow-up with primary care. Return to the ED for any new or worsening symptoms - Billing Disposition and Condition Condition: STABLE Disposition: Home
[2019-03-13 18:15] VITALS: BP 116/55
== END | disposition home or self-care (01) ==
LOC: ED 16:28
DX: M54.5 Low back pain (principal); G89.29 Other chronic pain; Z88.2 Allergy status to sulfonamides; E03.9 Hypothyroidism, unspecified; I10 Essential (primary) hypertension; Z86.79 Personal history of other diseases of the circulatory system; K21.9 Gastro-esophageal reflux disease without esophagitis; Z86.73 Personal history of transient ischemic attack (TIA), and cerebral infarction without residual deficits
CPT/HCPCS: 99282; A9270-GY

== ENCOUNTER 2019-06-06 13:29 | Emergency (ER) | payer MEDICARE ==
--- OUTSIDE RECORDS SUMMARY | 2019-06-06 13:45 | XMS REPORT | Continuity of Care Document ---
:1930 External Reference #:[id number] Author Name Coco Lucero Care Team Providers Name Role Phone Bill Holt MD Primary Care Physician Unavailable Payers Date Identification Numbers Payment Provider Subscriber Policy Number: [id number] Medicare Mikaela Parks [place] PayID: [id number] [address] [place] [address] Expires: 2018 Policy Number: [id number] Medicare Mikaela Parks [place] PayID: [id number] [address] [place] [address] Policy Number: [id number] [facility] Mikaela Parks [place] PayID: [id number] [address] [place] [address] Problems Active Problems Provider Date Essential hypertension Michael Echavarria M.D. Onset: 07/18/2015 Family History Date Family Member(s) Observation Comments [...] Unknown Never Smoked Cigarettes Smoking Status Reviewed: 05/17/19 Never Smoked Cigarettes ETOH Use Consumes 1 glass of wine not every day per day Tobacco Use Start: Unknown Patient has never smoked Recreational Drug Use Denies Drug Use Exercise Type/Frequency Exercises rarely Allergies, Adverse Reactions, Alerts Active Allergies Reaction Severity Comments Date Sulfa Antibiotics 05/01/2014 Flu Virus Vaccine 05/01/2014 Poliomyelitis Vaccine, patient does not think 05/01/2014 Inactivated this is accurate Serums (Vaccines) 05/01/2014 Wellbutrin 05/02/2014 Lyrica itching 05/02/2014 Cipro 05/02/2014 Codeine nightmares 05/02/2014 Tramadol 05/02/2014 Plavix 05/02/2014 Medications Active Medications SIG Qnty Indications Ordering Date Provider Hydrochlorothiazide 1 by mouth 90tabs I10 Michael D. 10/28/2018 12.5mg every other Brand, M.D. Tablets day Montelukast Sodium 1 by mouth Unknown 10mg Tablets every day Tylenol Extra Strength 1 tablet by 100tabs Unknown 500mg mouth twice a Tablets day as needed Timoptic 1 drop in left Unknown 0.5% Solution eye every day Travatan Z 1 ggt both Unknown 0.004% Solution eyes every night at bedtime Nitrostat one sl q5min 25tabs Michael Johansen 0.4mg Tablets Sub up to 3 doses Brand, M.D. as needed Nexium 1 by mouth as 30caps Unknown 40mg Capsules DR needed Aspirin 1 by mouth Unknown 81mg Chewtabs every day Nadolol 1 by mouth 90tabs Unknown 20mg Tablets every day Atorvastatin Calcium 1 by mouth Unknown 10mg Tablets every day Alprazolam one by mouth 30tabs Unknown 0.25mg Tablets up to three times daily as needed for anxiety Fluoxetine HCL 1 by mouth 30caps Unknown 20mg Capsules every day Am Levothyroxine Sodium 1 by mouth 90tabs Unknown 50mcg every day Tablets Nifedipine ER 1 by mouth 30tabs Unknown 30mg Tablets ER every day 24HR History Medications Drug For Osteoporosis not sure of name Unknown - 10/27/2018 Tramadol HCL 1 tablet po as Unknown - 50mg Tablets needed (does not 01/31/2018 take) Ibandronate Sodium 1 tablet po monthly Unknown - 150mg 10/31/2017 Tablets Cyclobenzaprine HCL Unknown - 10mg 09/15/2017 Tablets Zyrtec Allergy daily Unknown - 10/31/2017 Allergy 1 by mouth every Unknown - 10mg Tablets day 08/30/2017 B 12 Injection 1 injection monthly Bill Holt, - 10/31/2017 Fluocinonide applied to affected Unknown - 0.05% Ointment area as needed 04/02/2018 Mupirocin applied to affected Unknown - 2% Ointment area as needed 03/03/2018 Voltaren apply to affected Unknown - area as needed 08/30/2017 Orphenadrine Citrate ER 1 po qd as needed Unknown - 100mg 08/30/2017 Tablets ER 12HR Aspirin 1 by mouth every Unknown - 325mg Tablets day 04/18/2014 Triamterene/Hydrochloroth 1 po qod Unknown - iazide 10/28/2018 37.5-25mg Medications Administered in Office Medication SIG Qnty Indications Ordering Provider Date Triamcinolone (Kenalog) Fanta Kaufman MD 08/16/2018 Injection Inj, Regadenoson, 0.1 MG Michael Echavarria M.D. 09/17/2017 Injection Technetium TC 99M TetrofosmMichael bishop M.D. 09/17/2017 Per Unit Dose Up To 40 Millicuries Injection Triamcinolone (Kenalog) Fanta Kaufman MD 04/30/2016 Injection Inj, Regadenoson, 0.1 MG Sherie Momin M.D. 05/17/2013 Injection Technetium TC 99M TetrofosminSherie M.D. 05/17/2013 Per Unit Dose Up To 40 Millicuries Injection Vital Signs Date Vital Result Comment 05/17/2019 10:41am Height 61.5 inches 5'1.50" Weight 152.00 lb Clothes/shoes Heart Rate 72 /min Radial BP Systolic Sitting 132 mmHg Lue reg cuff BP Diastolic Sitting 78 mmHg Lue reg cuff BMI (Body Mass Index) 28.3 kg/m2 Ejection Fraction 55-60% Echo 09/29/2017 02/28/2019 1:21pm Height 61.5 inches 5'1.50" Weight [...] Result H/L Range Note Laboratory test 03/24/2015 [facility] Troponin I 0.00 ng/mL N <0.03 1 finding [address] [place] [address] [phone] B Type Natriuretic Peptide 88 pg/mL N 2 Comp Metabolic Panel 03/24/2015 [facility] Sodium 128 mmol/L Low [address] [place] [address] [phone] Potassium 3.8 mmol/L N 3.5-5.0 Chloride 98 [...] 88.3 N >60 3 Laboratory test 03/24/2015 [facility] Lactic Acid 1.5 mmol/L N 0.5-2.2 finding [address] [place] [address] [phone] CBC Auto Diff 03/24/2015 [facility] White Blood 6.1 10^3/uL N 4.8-10.8 [address] [place] [address] [phone] Red Blood Count 4.12 10^6/uL N 4.0-5.4 [...] 0.03 ng/mL Not supportive of diagnosis of PA 0.03 - 0.50 ng/mL Indeterminate: suggest serial studies if clinically indicated. Greater than 0.5 ng/mL Consistent with diagnosis of PA 2 >100 to <200 pg/mL: likely compensated [...] (or dialysis) Procedures Date Code Description Status 05/17/2019 37524 EKG Tracing & Interpretation Completed 10/28/2018 21204 EKG Tracing & Interpretation Completed 08/16/2018 02552 Inject/Drain Joint/Bursa Major W/O US Completed 06/02/2018 07491 EKG Tracing & Interpretation Completed 10/14/2017 87475 Diffusing Capacity Completed 10/14/2017 13972 Plethysmography Determination Lung Volumes & Per Airway Completed Resist 10/14/2017 21090 Pulmonary Stress Test Simple Completed 09/29/2017 94891 ECHO Transthoracic, Real-Time 2D With Doppler And Color Completed Flow 09/29/2017 82351 ECHO Transthoracic, Real-Time 2D With Doppler And Color Completed Flow 09/17/2017 86938 Stress Test Completed 09/17/2017 10492 Myocardial Perfusion Imaging Tomographic (Spect) Multiple Completed Studies 09/06/2017 77972 Holter Monitor Review (24 hr)dr review & interp only Completed 09/02/2017 56128 ECG Monitor/Recording W/Visual Superimposition Scanning Completed 09/02/2017 17921 ECG Monitor/Recording W/Visual Superimposition Scanning Completed 09/02/2017 99678 ECG Monitor/Recording W/Visual Superimposition Scanning Completed 08/31/2017 35145 EKG Tracing & Interpretation Completed 07/17/2016 22369 EKG Tracing & Interpretation Completed 04/30/2016 08482 Inject/Drain Joint/Bursa Major W/O US Completed 03/16/2016 36567 ECHO Transthoracic, Real-Time 2D With Doppler And Color Completed Flow 07/18/2015 41428 EKG Tracing & Interpretation Completed 05/02/2014 79793 EKG Tracing & Interpretation Completed 05/17/2013 88477 Stress Test Completed 05/17/2013 79541 Myocardial Perfusion Imaging Tomographic (Spect) Multiple Completed Studies 03/24/2013 31547 Holter Monitoring 24 HR New Completed 03/21/2013 89542 ECHO Transthoracic, Real-Time 2D With Doppler And Color Completed Flow 03/10/2013 48203 EKG Tracing & Interpretation Completed Encounters Type Date Location Provider Dx Diagnosis Office Visit 02/28/2019 [facility] Joseph Jeffries, M51.86 Other intervertebral 1:30p Services Of Daniel disc disorders, C.M.A. lumbar region Office Visit 10/28/2018 [facility] Michael Johansen I10 Essential ( primary) 12:15p Of Drywall Sprayer Brand, M.D. hypertension R06.02 Shortness of breath R94.31 Abnormal electrocardiogram [ECG] [EKG] Office Visit 08/16/2018 3:15p [facility] Fanta Kaufman, M25.562 Pain in left Of C.M.A. knee M17.12 Unilateral primary osteoarthritis, left knee Office Visit 06/02/2018 3:30p [facility] Michael Johansen I44.7 Left bundle-branch Of Manuel Echavarria M.D. block, unspecified I10 Essential (primary) hypertension R00.2 Palpitations Office Visit 12/08/2017 10:30a [facility] Michael Johansen R06.02 Shortness of Of Manuel Echavarria M.D. breath I44.7 Left bundle-branch block, unspecified I10 Essential (primary) hypertension Office Visit 11/01/2017 11:00a Pulmonology And [place] R06.02 Shortness of Sleep Services Of MD Asad breath Drywall Sprayer Office Visit 10/05/2017 1:00p Raul Johansen I44.7 Left Of Drywall Sprayer AT [facility] Daniel Echavarria bundle-branch block, unspecified R00.2 Palpitations R06.02 Shortness of breath Office Visit 08/31/2017 2:00p [facility] Michael Johansen I10 Essential (primary) Of Manuel AT [facility] Daniel Echavarria hypertension R06.02 Shortness of breath I44.7 Left bundle-branch block, unspecified Office Visit 07/17/2016 11:45a Raul Johansen I10 Essential (primary) Of Manuel Echavarria M.D. hypertension I49.49 Other premature depolarization R06.02 Shortness of breath Office Visit 04/30/2016 Orthopedic Fanta Kaufman, M17.12 Unilateral primary 11:00a Services Of osteoarthritis, left C.M.ADaphne knee M25.462 Effusion, left knee Office Visit 07/18/2015 12:15p Raul Johansen 401.9 Hypertension Of Manuel Echavarria M.D. Unspec 785.1 Palpitations Office Visit 05/02/2014 10:30a Ra[facility] Johansen 427.69 Premature Beats Of Manuel Echavarria M.D. Other 401.9 Hypertension Unspec Office Visit 03/29/2013 2:00p [facility] Michael Johansen 427.69 Premature Beats Of Manuel Echavarria M.D. Other 401.9 Hypertension Unspec Office Visit 03/10/2013 11:15a [facility] Michael Johansen 785.1 Palpitations Of Manuel [...] Of Caridad Guardado M.D. Plan of Treatment 05/17/2019 - Michael Echavarria M.D.I10 Essential (primary) hypertensionFollow up :6 iwfnstG19.02 Shortness of hfkjdzE81.7 Left bundle-branch block, unspecified
[2019-06-06 14:18] LABS: ABS Eosinophils 0.1 10^3/ul (0-0.6); ABS Lymphocytes 1.1 10^3/ul (1.0-4.8); ABS Monocytes 0.5 10^3/ul (0-0.8); ABS Neutrophils 3.7 10^3/ul (1.5-7.7); Eosinophil % 1.9 %; Hematocrit 41 % (35-47); Hemoglobin 14.1 g/dL (12.0-16.0); Lymphocyte % 19.8 %; Mean Corpuscular HGB Conc 35 g/dL (31-36); Mean Corpuscular Hemoglobin 35 pg (27-31); Mean Corpuscular Volume 101 fL (80-97); Mean Platelet Volume 7.3 fL (7.4-10.4); Platelet Count 162 10^3/uL (150-450); Red Blood Count 4.02 10^6 /uL (3.70-4.87); Red Cell Distribution Width 13 % (10-15); White Blood Count 5.3 10^3/uL (3.5-10.8)
[2019-06-06 14:34] LABS: Albumin 4.5 g/dL (3.2-5.2); Albumin/Globulin Ratio 1.6 (1-3); BUN/Creatinine Ratio 25.8 (8-20); Calcium 10.8 mg/dL (8.6-10.3); EGFR African American 65.9 (>60); EGFR Non-African American 54.5 (>60); Globulin 2.8 g/dL (2-4); Potassium 4.2 mmol/L (3.5-5.0); Total Bilirubin 0.8 mg/dL (0.2-1.0); Total Protein 7.3 g/dL (6.4-8.9)
[2019-06-06] MEDS ORDERED: Morphine 4 MG/ML VIAL (1 ml) 4 MG/ML VIAL IV ONE (15:26)
[2019-06-06] MEDS ORDERED: Ondansetron INJ* 2 MG/ML VIAL IV ONE (15:26)
--- NOTE | 2019-06-06 15:37 | ED ---
Back Pain - HPI Summary HPI Summary: Pt is an 88 y/o F presenting to the ED with a chief complaint of back pain. She states she was at [facility] when her normal hip/back pain began bothering her, but after she got home it worsened. Patient states the pain worsens when she attempted to walk up 3 steps and was unable to put weight on her left leg. She is reporting 10 at 10 sharp shooting pain from her left thoracic back down to her left hip into her left knee. Pain is worse with ambulation, relieved elevating the leg. Patient states this pain is similar to her prior back pain however it is worse today. Patient positive pain management for which she had a trigger point injection last month. Patient reported feeling a burning 5/10 sensation in her chest that began at rest and lasted for approximately 30 minutes. Pain resolved when she arrived in the emergency room. 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 No history of KS, or heart failure.. She notes hx of DDD, arthritis, angina, HTN, HLD, and LE edema. 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 - History of Current Complaint Chief Complaint: EDChestPainROMI Stated Complaint: CHEST PAIN AND BACK PAIN PER PATIENT Time Seen by Provider: 06/06/19 14:40 Hx Obtained From: Patient Onset/Duration: Gradual Onset, Lasting Hours, Still Present Onset/Duration: Started Hours Ago, Still Present Timing: Constant, Lasting Hours Severity Initially: Moderate Severity Currently: Severe Pain Intensity: 9 Pain Scale Used: 0-10 Numeric Aggravating Symptom(s): Movement, Other - lying flat Alleviating Symptom(s): Nothing - Allergies/Home Medications Allergies/Adverse Reactions: Allergies Allergy/AdvReac Type Severity Reaction Status Date / Time bupropion [From Wellbutrin] Allergy Unknown Unknown Verified 05/01/19 10:39 Reaction Details ciprofloxacin [From Cipro] Allergy Unknown Unknown Verified 05/01/19 10:39 Reaction Details Influenza Virus Vaccines Allergy Unknown Unknown Verified 05/01/19 10:39 Reaction Details nitrofurantoin Allergy Unknown Unknown Verified 05/01/19 10:39 [From Macrobid] Reaction Details pregabalin [From Lyrica] Allergy Unknown Unknown Verified 05/01/19 10:39 Reaction Details Sulfa (Sulfonamide Allergy Unknown Unknown Verified 05/01/19 10:39 Antibiotics) Reaction Details clopidogrel [From Plavix] AdvReac Unknown Bleeding Verified 05/01/19 10:39 codeine AdvReac Unknown GI Upset Verified 05/01/19 10:39 Home Medications: Home Medications ALPRAZolam TAB* [Xanax TAB*] 0.25 mg PO TID PRN 06/06/19 [History Confirmed ] Calcium Carbonate [Calcium] 1,200 mg PO DAILY 06/06/19 [History Confirmed ] Cyanocobalamin TAB* [Vitamin B12 TAB*] 500 mcg PO DAILY 06/06/19 [History Confirmed 06/06/19] Diazepam TAB(*) [Valium TAB(*)] 5 mg PO DAILY PRN 06/06/19 [History Confirmed ] FLUoxetine CAP* [PROzac CAP*] 20 mg PO DAILY 06/06/19 [History Confirmed ] Hydrochlorothiazide TAB* [Hydrodiuril TAB*] 12.5 mg PO EVERY OTHER DAY 06/06/19 [History Confirmed 06/06/19] Krill/Om-3/Dha/Epa/Phospho/Ast [Megared [place]-3 Krill Oil Sfgl] 1 cap PO DAILY 06/06/19 [History Confirmed 06/06/19] Latanoprost 0.005%* [Xalatan 0.005%*] 1 drop BOTH EYES BEDTIME 06/06/19 [ History Confirmed 06/06/19] Multivitamins/Minerals TAB* [Theragran/minerals TAB*] 1 tab PO DAILY 06/06/19 [ History Confirmed 06/06/19] Nitroglycerin TAB 0.4 MG* 0.4 mg SL Q5M PRN 06/06/19 [History Confirmed 06/06/19 ] PMH/Surg Hx/FS Hx/Imm Hx Previously Healthy: Yes Endocrine/Hematology History: Reports: Hx Thyroid Disease - hypothyroidism Denies: Hx Anticoagulant Therapy, Hx Diabetes Cardiovascular History: Reports: Hx Angina - Prinzemetal's angina, Hx Hypercholesterolemia, Hx Hypertension - CONTROLLED WITH MEDICATION, Other Cardiovascular Problems/Disorders - left bundle branch block Denies: Hx Pacemaker/ICD Respiratory History: Reports: Hx Pneumonia, Other Respiratory Problems/ Disorders - PT STATES HX OF PNEUMONIA GI History: Reports: Hx Gall Bladder Disease - surgery 1995, Hx Gastroesophageal Reflux Disease - 08/26 resolved, Hx Irritable Bowel History: Reports: Hx Kidney Stones - week of september Comment Only: Other Problems/Disorders - KNOWN BILAT KIDNEY STONES FOR A WHILE BEING FOLLOWED BY UROLOGY Musculoskeletal History: Reports: Hx Arthritis, Hx Back Problems, Hx Fibromyalgia, Hx Osteoporosis, Other Musculoskeletal History - arthritis, mid back pain no trauma, SHINGLES 05/2012, FALL 06/2012 Sensory History: Reports: Hx Cataracts - surgery 1999 Denies: Hx Hearing Aid Opthamlomology History: Reports: Hx Cataracts - surgery 1999 Neurological History: Reports: Hx Transient Ischemic Attacks (TIA), Other Neuro Impairments/Disorders - PAIN CLINIC PATIENT Psychiatric History: Reports: Hx Anxiety Denies: Hx Panic Disorder - Cancer History Hx Chemotherapy: No Hx Radiation Therapy: No - Surgical History Surgery Procedure, Year, and Place: Total Abdominal Hysterectomy/bso 1984. bladder suspension 1984. left great toe 1992. breast cysts 1983. cholecystectomy 1995. hand surgery 2003. left thumb. cataracts [facility] Infectious Disease History: No Infectious Disease History: Reports: Hx Shingles - 2011 Denies: Traveled Outside the [place] in Last 30 Days - Family History Known Family History: Positive: Other Family History: microscopic hematuria (twin sister) - Social History Alcohol Use: None Alcohol Amount: 5 drinks per week Hx Substance Use: No Substance Use Type: Reports: None Substance Use Comment - Amount & Last Used: oxycodone, valium - prescribed Hx Tobacco Use: No Smoking Status (MU): Never Smoked Tobacco Have You Smoked in the Last Year: No Review of Systems Positive: Chest Pain Positive: Myalgia - back pain, Decreased ROM All Other Systems Reviewed And Are Negative: Yes Physical Exam - Summary Physical Exam Summary: Constitutional: Well-developed, Well-nourished, Alert. Mild distress secondary to pain. Skin: Warm, Dry HENT: Normocephalic; Atraumatic Eyes: Conjunctiva normal Neck: Musculoskeletal ROM normal neck. (-) JVD, (-) Stridor Cardio: Rhythm regular, rate normal, Heart sounds normal; Intact distal pulses; Radial pulses are 2+ and symmetric. (-) Murmur Pulmonary/Chest wall: Effort normal. (-) Respiratory distress, (-) Wheezes, (-) Rales Abd: Soft, (-) tenderness, (-) Distension, (-) Guarding, (-) Rebound Musculoskeletal: L paraspinal thoracic and lumbar tenderness. No midline cervical, thoracic, or lumbar tenderness. Positive straight leg raise on left, and inability to lay completely flat secondary to pain. Lymph: (-) Cervical adenopathy Neuro: Alert, Oriented x3 Psych: Mood and affect Normal Triage Information Reviewed: Yes Vital Signs On Initial Exam: Initial Vitals Temp Pulse Resp BP Pulse Ox 98.3 F 86 18 149/73 99 06/06/19 13:34 06/06/19 13:34 06/06/19 13:34 06/06/19 13:34 06/06/19 13:34 Vital Signs Reviewed: Yes Diagnostics - Vital Signs Vital Signs Temp Pulse Resp BP Pulse Ox 06/06/19 13:34 98.3 F 86 18 149/73 99 - Laboratory Lab Results: Lab Results 06/06/19 06/06/19 06/06/19 Range/Units 13:53 13:53 13:53 WBC 5.3 (3.5-10.8) 10^3/uL RBC 4.02 (3.70-4.87) 10^6 /uL Hgb 14.1 (12.0-16.0) g/dL Hct 41 (35-47) % MCV 101 H (80-97) fL MCH 35 H (27-31) pg MCHC 35 (31-36) g/dL RDW 13 (10-15) % Plt Count 162 (150-450) 10^3/uL MPV 7.3 L (7.4-10.4) fL Neut % (Auto) 68.9 % Lymph % (Auto) 19.8 % Band[place] % (Auto) 9.0 % Eos % (Auto) 1.9 % Baso % (Auto) 0.4 % Absolute Neuts (auto) 3.7 (1.5-7.7) 10^3/ul Absolute Lymphs (auto) 1.1 (1.0-4.8) 10^3/ul Absolute Monos (auto) 0.5 (0-0.8) 10^3/ul Absolute Eos (auto) 0.1 (0-0.6) 10^3/ul Absolute Basos (auto) 0.0 (0-0.2) 10^3/ul Absolute Nucleated RBC 0.0 10^3/ul Nucleated RBC % 0.0 Sodium 136 (135-145) mmol/L Potassium 4.2 (3.5-5.0) mmol/L Chloride 102 (101-111) mmol/L Carbon Dioxide 24 (22-32) mmol/L Anion Gap 10 (2-11) mmol/L BUN 25 H (6-24) mg/dL Creatinine 0.97 H (0.51-0.95) mg/dL Est GFR ( Amer) 65.9 (>60) Est GFR (Non-Af Amer) 54.5 (>60) BUN/Creatinine Ratio 25.8 H (8-20) Glucose 106 H (70-100) mg/dL Calcium 10.8 H (8.6-10.3) mg/dL Total Bilirubin 0.80 (0.2-1.0) mg/dL AST 35 (13-39) U/L ALT 23 (7-52) U/L Alkaline Phosphatase 74 (34-104) U/L Troponin I 0.00 (<0.04) ng/mL B-Natriuretic Peptide 89 (<=100) pg/mL Total Protein 7.3 (6.4-8.9) g/dL Albumin 4.5 (3.2-5.2) g/dL Globulin 2.8 (2-4) g/dL Albumin/Globulin Ratio 1.6 (1-3) Result Diagrams: 06/06/19 13:53 06/06/19 13:53 Lab Statement: Any lab studies that have been ordered have been reviewed, and results considered in the medical decision making process. - Radiology CXR Radiology Interpretation Completed By: Radiologist Summary of Radiographic Findings: No evidence for active cardiopulmonary disease. ED physician has reviewed this report. - EKG 1331 Cardiac Rate: NL - 79bpm EKG Rhythm: Sinus Rhythm ST Segment: Normal Ectopy: None Summary of EKG Findings: An EKG at 1331 reveals normal sinus rhythm at 79bpm, nml axis, nml intervals, with old LBBB. No STEMI. No acute changes, and no change from 01/05/19. Re-Evaluation - Re-Evaluation 1st re-eval Re-Evaluation Time: 16:18 Change: Improved Comment: Pt's pain has decreased to 3/10. 2nd re-eval Re-Evaluation Time: 17:44 Change: Improved Comment: Pt is feeling better. Her troponin I and II are negative, I informed her of the results, and she is agreeable with going home. Back Pain Course/Dx - Course Course Of Treatment: 88-year-old female with a history of chronic left-sided lower thoracic upper lumbar back pain secondary to myofascial dysfunction presents with worsening pain. Physical exam notable for paraspinal tenderness as well as SI joint tenderness and positive straight leg raise. No new or concerning neurologic symptoms such as weakness numbness. Patient states this is her chronic pain but is worsening therefore we will try pain control before ordering further workup. Patient recently saw pain management on 05/01 for her chronic left-sided lower thoracic, upper lumbar, paravertebral myofascial pain secondary to myofascial dysfunction. Per review of records she reported continued benefit with left-sided trigger point injections with local anesthetic as well as dry needling. At that time the physician recommended left -sided trigger point injections and possible left SI joint injections in the future. Regarding her chest pain, patient reported one episode of chest pain while at [facility], will do a 2 troponin neurologic as well as EKG and chest x- ray. Chest Pain DDX: The patient is well appearing, with stable vitals. Given the patient's clinical presentation, highest on differential is atypical CP. Although less likely, differential also includes the following: -- Pneumothorax: Equal breath sounds, story inconsistent since gradual onset of symptoms. CXR shows no evidence of pneumothorax. Unlikely. --Cardiac tamponade : The history and physical are not concerning for tamponade. No Pulsus Paradoxus , no tachypnea. Unlikely. --Mediastinitis or esophageal rupture: The history is not consistent, as the patient has had no recent history of significant wretching, instrumentation, or mediastinal surgeries. Unlikely. --Aortic dissection: The patient does not describe the classical tearing chest pain radiating into the back, and the CXR does not show mediastinal widening or other signs of aortic dissection. Unlikely. --PE: Vitals wnl (not hypoxic, tachycardic or tachypneic). --ACS: The initial EKG shows no ischemic changes. The initial troponin is not elevated x2 - Diagnoses Provider Diagnoses: Back pain, Hip pain, Chest pain Discharge - Sign-Out/Discharge Documenting (check all that apply): Patient Departure Patient Received Moderate/Deep Sedation with Procedure: No - Discharge Plan Condition: Stable Disposition: HOME Patient Education Materials: Back Pain (ED) Referrals: Bill Holt MD [Primary Care Provider] - Additional Instructions: Please follow up with your primary care provider and your pain management doctor. Please schedule an outpatient stress test with your primary care doctor. Return to the emergency department with any new or worsening symptoms. - Billing Disposition and Condition Condition: STABLE Disposition: Home - Attestation Statements Document Initiated by Scribe: Yes Documenting Scribe: Yin Solano Provider For Whom Lilian is Documenting (Include Credential): Judy Massey MD. Scribe Attestation: Yin Patel, scrjacintaed for Judy Massey MD. on 06/06/19 at 1754. Scribe Documentation Reviewed: Yes Provider Attestation: The documentation as recorded by the scribeYin accurately reflects the service I personally performed and the decisions made by Judy shirley MD. Status of Scribe Document: Viewed
[2019-06-06 15:52] LABS: INR 1.04 (0.82-1.09)
[2019-06-06 17:51] VITALS: BP 138/82
== END 2019-06-06 17:51 | disposition home or self-care (01) ==
LOC: ED 13:29
DX: M54.9 Dorsalgia, unspecified (principal); R07.9 Chest pain, unspecified; M25.552 Pain in left hip; Z88.1 Allergy status to other antibiotic agents; Z88.5 Allergy status to narcotic agent; Z88.2 Allergy status to sulfonamides; Z88.7 Allergy status to serum and vaccine; Z88.8 Allergy status to other drugs, medicaments and biological substances; Z79.899 Other long term (current) drug therapy; E03.9 Hypothyroidism, unspecified; I20.9 Angina pectoris, unspecified; I10 Essential (primary) hypertension; E78.00 Pure hypercholesterolemia, unspecified; I44.7 Left bundle-branch block, unspecified; Z86.73 Personal history of transient ischemic attack (TIA), and cerebral infarction without residual deficits; F41.9 Anxiety disorder, unspecified
CPT/HCPCS: 36415; 71046; 80053; 83880; 84484; 85025; 85610; 93005; 96374; 96375; 99283; J2270; J2405

== ENCOUNTER 2019-06-12 14:08 | Emergency (ER) | payer MEDICARE ==
[2019-06-12] MEDS ORDERED: Meperidine SYRINGE* 50 MG/ML IM ONE (15:16)
[2019-06-12] MEDS ORDERED: Ondansetron ODT TAB* 4 MG PO ONE (15:17)
[2019-06-12] MEDS ORDERED: Meperidine Ampule* 100 MG/2 ML AMPUL IM ONE (16:00)
--- NOTE | 2019-06-12 16:57 | ED ---
Back Pain - HPI Summary HPI Summary: Patient complains of acute on chronic mid left back pain. 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 Patient is ambulatory, denies incontinence or urinary retention. States history of back problems since fall in November. Seen here 06/06 for same. Patient states she takes Valium 5 mg by mouth at home with no relief. Also states she sees pain management for trigger point injections every 2 months. - History of Current Complaint Chief Complaint: EDBackInjuryPain Stated Complaint: BACKPAIN PER EMS Time Seen by Provider: 06/12/19 14:38 Hx Obtained From: Patient Onset/Duration: Sudden Onset, Lasting Hours Onset/Duration: Started Hours Ago Timing: Constant Back Pain Location: Is Discrete @ Severity Initially: Severe Severity Currently: Severe Pain Intensity: 10 Pain Scale Used: 0-10 Numeric Character: Aching, Throbbing Aggravating Symptom(s): Movement Alleviating Symptom(s): Rest Associated Signs And Symptoms: Positive: Negative - Allergies/Home Medications Allergies/Adverse Reactions: Allergies Allergy/AdvReac Type Severity Reaction Status Date / Time bupropion [From Wellbutrin] Allergy Unknown Unknown Verified 05/01/19 10:39 Reaction Details ciprofloxacin [From Cipro] Allergy Unknown Unknown Verified 05/01/19 10:39 Reaction Details Influenza Virus Vaccines Allergy Unknown Unknown Verified 05/01/19 10:39 Reaction Details nitrofurantoin Allergy Unknown Unknown Verified 05/01/19 10:39 [From Macrobid] Reaction Details pregabalin [From Lyrica] Allergy Unknown Unknown Verified 05/01/19 10:39 Reaction Details Sulfa (Sulfonamide Allergy Unknown Unknown Verified 05/01/19 10:39 Antibiotics) Reaction Details clopidogrel [From Plavix] AdvReac Unknown Bleeding Verified 05/01/19 10:39 codeine AdvReac Unknown GI Upset Verified 05/01/19 10:39 PMH/Surg Hx/FS Hx/Imm Hx Endocrine/Hematology History: Reports: Hx Thyroid Disease - hypothyroidism Denies: Hx Anticoagulant Therapy, Hx Diabetes Cardiovascular History: Reports: Hx Angina - Prinzemetal's angina, Hx Hypercholesterolemia, Hx Hypertension - CONTROLLED WITH MEDICATION, Other Cardiovascular Problems/Disorders - left bundle branch block Denies: Hx Pacemaker/ICD Respiratory History: Reports: Hx Pneumonia, Other Respiratory Problems/ Disorders - PT STATES HX OF PNEUMONIA GI History: Reports: Hx Gall Bladder Disease - surgery 1995, Hx Gastroesophageal Reflux Disease - 08/26 resolved, Hx Irritable Bowel History: Reports: Hx Kidney Stones - week of september Comment Only: Other Problems/Disorders - KNOWN BILAT KIDNEY STONES FOR A WHILE BEING FOLLOWED BY UROLOGY Musculoskeletal History: Reports: Hx Arthritis, Hx Back Problems, Hx Fibromyalgia, Hx Osteoporosis, Other Musculoskeletal History - arthritis, mid back pain no trauma, SHINGLES 05/2012, FALL 06/2012 Sensory History: Reports: Hx Cataracts - surgery 1999 Denies: Hx Hearing Aid Opthamlomology History: Reports: Hx Cataracts - surgery 1999 Neurological History: Reports: Hx Transient Ischemic Attacks (TIA), Other Neuro Impairments/Disorders - PAIN CLINIC PATIENT Psychiatric History: Reports: Hx Anxiety Denies: Hx Panic Disorder - Cancer History Hx Chemotherapy: No Hx Radiation Therapy: No - Surgical History Surgery Procedure, Year, and Place: Total Abdominal Hysterectomy/bso 1984. bladder suspension 1984. left great toe 1992. breast cysts 1983. cholecystectomy 1995. hand surgery 2003. left thumb. cataracts [facility] Infectious Disease History: No Infectious Disease History: Reports: Hx Shingles - 2011 Denies: Traveled Outside the [place] in Last 30 Days - Family History Known Family History: Positive: Other Family History: microscopic hematuria (twin sister) - Social History Alcohol Use: None Alcohol Amount: 5 drinks per week Hx Substance Use: No Substance Use Type: Reports: None Substance Use Comment - Amount & Last Used: oxycodone, valium - prescribed Hx Tobacco Use: No Smoking Status (MU): Never Smoked Tobacco Have You Smoked in the Last Year: No Review of Systems Constitutional: Negative Eyes: Negative ENT: Negative Cardiovascular: Negative Respiratory: Negative Gastrointestinal: Negative Genitourinary: Negative Musculoskeletal: Other Skin: Negative Neurological: Negative Psychological: Normal All Other Systems Reviewed And Are Negative: Yes Physical Exam - Summary Physical Exam Summary: Tenderness to palpation along left side thoracic or spinal muscles. No ecchymosis, erythema, deformity, masses, swelling noted to back. Lung sounds clear to auscultation bilaterally. PMS intact distally on lower extremities. Triage Information Reviewed: Yes Vital Signs On Initial Exam: Initial Vitals Temp Pulse Resp BP Pulse Ox 99.2 F 88 19 142/80 98 06/12/19 14:17 06/12/19 14:17 06/12/19 14:17 06/12/19 14:17 06/12/19 14:17 Vital Signs Reviewed: Yes Appearance: Positive: Well-Appearing Skin: Positive: Warm Head/Face: Positive: Normal Head/Face Inspection Eyes: Positive: Normal Neck: Positive: Supple Respiratory/Lung Sounds: Positive: Clear to Auscultation Cardiovascular: Positive: Normal Abdomen Description: Positive: Nontender Musculoskeletal: Positive: Normal Neurological: Positive: Normal Psychiatric: Positive: Normal AVPU Assessment: Alert - [place] Coma Scale Best Eye Response: 4 - Spontaneous Best Motor Response: 6 - Obeys Commands Best Verbal Response: 5 - Oriented Coma Scale Total: 15 Diagnostics - Vital Signs Vital Signs Temp Pulse Resp BP Pulse Ox 06/12/19 16:00 72 97 06/12/19 15:58 79 125/79 98 06/12/19 15:43 159/76 06/12/19 15:40 17 06/12/19 15:13 71 144/66 97 06/12/19 15:00 71 98 06/12/19 14:43 73 145/65 97 06/12/19 14:35 76 98 06/12/19 14:34 76 134/76 98 06/12/19 14:17 99.2 F 88 19 142/80 98 - Laboratory Lab Statement: Any lab studies that have been ordered have been reviewed, and results considered in the medical decision making process. Back Pain Course/Dx - Course Course Of Treatment: Patient complains of acute on chronic mid left back pain. 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 Patient is ambulatory, denies incontinence or urinary retention. States history of back problems since fall in November. Seen here 06/06 for same. Patient states she takes Valium 5 mg by mouth at home with no relief. Also states she sees pain management for trigger point injections every 2 months. Vital signs within normal limits. Patient sat up and started to change her clothes after Demerol was given IV. States she was ready to go home. - Diagnoses Provider Diagnoses: Chronic upper back pain Discharge - Sign-Out/Discharge Documenting (check all that apply): Patient Departure Patient Received Moderate/Deep Sedation with Procedure: No - Discharge Plan Condition: Stable Disposition: HOME Patient Education Materials: Chronic Back Pain (DC) Referrals: Bill Holt MD [Primary Care Provider] - Additional Instructions: Follow-up with pain management. Return to the ED for any new or worsening symptoms - Billing Disposition and Condition Condition: STABLE Disposition: Home
[2019-06-12 17:03] VITALS: BP 143/71
== END 2019-06-12 17:02 | disposition home or self-care (01) ==
LOC: ED 14:08
DX: M54.89 Other dorsalgia (principal); G89.29 Other chronic pain; Z88.8 Allergy status to other drugs, medicaments and biological substances; Z88.1 Allergy status to other antibiotic agents; Z88.5 Allergy status to narcotic agent; Z88.2 Allergy status to sulfonamides; Z88.7 Allergy status to serum and vaccine; E03.9 Hypothyroidism, unspecified; I20.9 Angina pectoris, unspecified; E78.00 Pure hypercholesterolemia, unspecified; I10 Essential (primary) hypertension; I44.7 Left bundle-branch block, unspecified; Z79.899 Other long term (current) drug therapy
CPT/HCPCS: 96372; 99283; A9270-GY; J2175

== ENCOUNTER → 2019-06-15 11:56 | Emergency (ER) | payer MEDICARE ==
[~2019-06-15 11:56] MED LIST changes: -Diazepam TAB(*) 5 MG PO ONE; +HYDROcodone/ACETAMIN 5-325 MG* 1 TAB PO ONE
--- NOTE | 2019-06-15 12:23 | ED ---
Back Pain - HPI Summary HPI Summary: The patient is an 88 y/o F arriving by ambulance to [facility] with a chief complaint of gradually worsening mid back pain for the last 8 months. She reports that in November 2018, she had fallen while walking by tripping on a step inside her daughter's house, causing her to hit the left side of her body on the wall, including her shoulder, wrist, ribs, and hip. She had been to [facility] and was admitted. Then, in December 2018, she had fallen again and sustained a head injury. Since both of these falls, she has been experiencing pain that starts in the neck, is worst in the mid back, and then radiates to the coccyx, and down the LLE from the hip to the knee. She states that it has been difficult to stand for long secondary to pain. She denies changes of urination or BM, fever, chills, erythema of eyes, sore throat, CP, SOB, cough, abdominal pain, N/V, dysuria, hematuria, edema, rash, or dizziness. She has been to [facility] recently for the same pain, and she notes that she has been using Tylenol, Ibuprofen, and Diazepam to relieve the pain. Currently, the pain is rated 3/10 in severity after taking the medications this morning, but it was 10/ 10 in severity previously. She has been unable to see pain specialists since the pain has worsened recently, but she has seen Dr. Jeffries and Dr. Leiva, but she has an appointment in the Pain [facility] on 06/22/19. Hx of thyroid disease, angina, HLD, HTN, LBBB, PNA, kidney stones, back problems, arthritis, fibromyalgia, TIA, anxiety. No back surgery. Nonsmoker, no EtOH, no substance use. - History of Current Complaint Chief Complaint: EDBackInjuryPain Stated Complaint: BACK PAIN PER EMS Time Seen by Provider: 06/15/19 11:58 Hx Obtained From: Patient Onset/Duration: Gradual Onset, Lasting Weeks, Still Present Back Pain Location: Is Discrete @ - mid back, Radiates To - left hip and knee Severity Initially: Severe Severity Currently: Moderate Pain Intensity: 10 Pain Scale Used: 0-10 Numeric Character: Sharp Aggravating Symptom(s): Walking Alleviating Symptom(s): Other - Diazepam, Tylenol, and Ibuprofen Associated Signs And Symptoms: Negative: Bladder Incontinence, Bowel Incontinence - Allergies/Home Medications Allergies/Adverse Reactions: Allergies Allergy/AdvReac Type Severity Reaction Status Date / Time bupropion [From Wellbutrin] Allergy Unknown Unknown Verified 05/01/19 10:39 Reaction Details ciprofloxacin [From Cipro] Allergy Unknown Unknown Verified 05/01/19 10:39 Reaction Details Influenza Virus Vaccines Allergy Unknown Unknown Verified 05/01/19 10:39 Reaction Details nitrofurantoin Allergy Unknown Unknown Verified 05/01/19 10:39 [From Macrobid] Reaction Details pregabalin [From Lyrica] Allergy Unknown Unknown Verified 05/01/19 10:39 Reaction Details Sulfa (Sulfonamide Allergy Unknown Unknown Verified 05/01/19 10:39 Antibiotics) Reaction Details clopidogrel [From Plavix] AdvReac Unknown Bleeding Verified 05/01/19 10:39 codeine AdvReac Unknown GI Upset Verified 05/01/19 10:39 PMH/Surg Hx/FS Hx/Imm Hx Endocrine/Hematology History: Reports: Hx Thyroid Disease - hypothyroidism Denies: Hx Anticoagulant Therapy, Hx Diabetes Cardiovascular History: Reports: Hx Angina - Prinzemetal's angina, Hx Hypercholesterolemia, Hx Hypertension - CONTROLLED WITH MEDICATION, Other Cardiovascular Problems/Disorders - left bundle branch block Denies: Hx Pacemaker/ICD Respiratory History: Reports: Hx Pneumonia, Other Respiratory Problems/ Disorders - PT STATES HX OF PNEUMONIA GI History: Reports: Hx Gall Bladder Disease - surgery 1995, Hx Gastroesophageal Reflux Disease - 08/26 resolved, Hx Irritable Bowel History: Reports: Hx Kidney Stones - week of september Comment Only: Other Problems/Disorders - KNOWN BILAT KIDNEY STONES FOR A WHILE BEING FOLLOWED BY UROLOGY Musculoskeletal History: Reports: Hx Arthritis, Hx Back Problems, Hx Fibromyalgia, Hx Osteoporosis, Other Musculoskeletal History - arthritis, mid back pain no trauma, SHINGLES 05/2012, FALL 06/2012 Sensory History: Reports: Hx Cataracts - surgery 1999 Denies: Hx Hearing Aid Opthamlomology History: Reports: Hx Cataracts - surgery 1999 Neurological History: Reports: Hx Transient Ischemic Attacks (TIA), Other Neuro Impairments/Disorders - PAIN CLINIC PATIENT Psychiatric History: Reports: Hx Anxiety Denies: Hx Panic Disorder - Cancer History Hx Chemotherapy: No Hx Radiation Therapy: No - Surgical History Surgery Procedure, Year, and Place: Total Abdominal Hysterectomy/bso 1984. bladder suspension 1984. left great toe 1992. breast cysts 1983. cholecystectomy 1995. hand surgery 2003. left thumb. cataracts [facility] Infectious Disease History: No Infectious Disease History: Reports: Hx Shingles - 2011 Denies: Traveled Outside the [place] in Last 30 Days - Family History Known Family History: Positive: Other Family History: microscopic hematuria (twin sister) - Social History Alcohol Use: None Alcohol Amount: 5 drinks per week Hx Substance Use: No Substance Use Type: Reports: None Substance Use Comment - Amount & Last Used: oxycodone, valium - prescribed Hx Tobacco Use: No Smoking Status (MU): Never Smoked Tobacco Have You Smoked in the Last Year: No Review of Systems Negative: Fever, Chills Negative: Erythema Negative: Sore Throat Negative: Chest Pain Negative: Shortness Of Breath, Cough Positive: Other - NEGATIVE: changes in BM. Negative: Abdominal Pain, Vomiting, Nausea Positive: other - NEGATIVE: changes in urination. Negative: dysuria, hematuria Positive: Myalgia - pain in the neck goign to the mid back that radiates down to the coccyx and to the front left side in the hip, thigh, and knee. Negative : Edema Negative: Rash Neurological: Other - NEGATIVE: dizziness Negative: Headache All Other Systems Reviewed And Are Negative: Yes Physical Exam - Summary Physical Exam Summary: Constitutional: Well-developed, Well-nourished, Alert. (-) Distressed Skin: Warm, Dry HENT: Normocephalic; Atraumatic Eyes: Conjunctiva normal Neck: Musculoskeletal ROM normal neck. (-) JVD, (-) Stridor, (-) Tracheal deviation Cardio: Rhythm regular, rate normal, Heart sounds normal; Intact distal pulses; The pedal pulses are 2+ and symmetric. Radial pulses are 2+ and symmetric. (-) Murmur Pulmonary/Chest wall: Effort normal. (-) Respiratory distress, (-) Wheezes, (-) Rales Abd: Soft, (-) tenderness, (-) Distension, (-) Guarding, (-) Rebound Musculoskeletal: No tenderness to palpation, lower extremity strength 5/5 with FROM, Back pain reproduced with movement. (-) Edema Lymph: (-) Cervical adenopathy Neuro: Alert, Oriented x3 Psych: Mood and affect Normal Triage Information Reviewed: Yes Vital Signs On Initial Exam: Initial Vitals Temp Pulse Resp BP Pulse Ox 98 F 81 18 138/64 97 06/15/19 11:57 06/15/19 11:57 06/15/19 11:57 06/15/19 11:57 06/15/19 11:57 Vital Signs Reviewed: Yes Diagnostics - Vital Signs Vital Signs Temp Pulse Resp BP Pulse Ox 06/15/19 11:57 98 F 81 18 138/64 97 - Laboratory Result Diagrams: 06/15/19 12:46 06/15/19 12:46 Lab Statement: Any lab studies that have been ordered have been reviewed, and results considered in the medical decision making process. - CT Thoracic Spine CT CT Interpretation Completed By: Radiologist Summary of CT Findings: Impression: 1. No fracture or traumatic malalignment of the thoracic spine. 2. Osteopenia. 3. Varying degrees of multiple spondylosis does not result in significant osseous encroachment of the spinal canal and neural foramina. ED physician has reviewed this report. Lumbar Spine CT CT Interpretation Completed By: Radiologist Summary of CT Findings: 1. No fracture or traumatic malalignment of the lumbar spine. 2. Osteopenia. 3. Very degrees of multilevel spondylosis does not result in significant osseous encroachment spinal canal and neural foramina. Mild to moderate spinal canal stenosis at L4-L5 is suspected on the basis of broad- based disc bulge, facet arthropathy and ligamentum flavum thickening. ED physician has reviewed this report. Re-Evaluation - Re-Evaluation First Eval Re-Evaluation Time: 13:43 Comment: Patient is ambulating to the bathroom using a walker. Second Eval Re-Evaluation Time: 14:25 Change: Improved Comment: I discussed discharge plan with the patient. I reassured her that she is able to drive as long as she hasn't had hydrocodne within four hours. She is on the call list for the Pain Clinic, and she has appt with Dr. Leiva on Wednesday , 06/19. Back Pain Course/Dx - Course Course Of Treatment: Patient is an 88 y/o F arriving by ambulance with cc of gradually worsening mid back pain that radiates from the neck and into the coccyx and LLE initially onset after sustaining two falls in November and December 2018. Pain makes ambulation difficult. Denies loss of bladder or bowel. States she takes Diazepam, Tylenol, and Ibuprofen for pain. Has consulted with Dr. Jeffries and Dr. Leiva with appointment with Pain Clinic on 06/2019. Upon physical exam, the patient exhibits no tenderness to palpation, lower extremity strength 5/5 with FROM, back pain reproduced with movement. In the ED course, the patient was administered Hydrocodone, which helped to alleviated her pain. Thoracic Spine CT Impression: 1. No fracture or traumatic malalignment of the thoracic spine. 2. Osteopenia. 3. Varying degrees of multiple spondylosis does not result in significant osseous encroachment of the spinal canal and neural foramina. Lumbar Spine CT Impression: 1. No fracture or traumatic malalignment of the lumbar spine. 2. Osteopenia. 3. Very degrees of multilevel spondylosis does not result in significant osseous encroachment spinal canal and neural foramina. Mild to moderate spinal canal stenosis at L4- L5 is suspected on the basis of broad-based disc bulge, facet arthropathy and ligamentum flavum thickening. Patient has improved with Hydrocodone administration. I reassured her that she can drive herself as long as she is not within four hours of taking the medication. She is aware that she is on the cancellation call list for the Pain Clinic, and I have set up an appointment with Dr. Leiva on 06/19/19 at 0820. She agrees with this plan. She is diagnosed with chronic back pain and given rx for Hydrocodone. - Diagnoses Provider Diagnoses: Chronic back pain Discharge - Sign-Out/Discharge Documenting (check all that apply): Patient Departure - Patient will be discharged home. Patient Received Moderate/Deep Sedation with Procedure: No - Discharge Plan Condition: Improved Disposition: HOME Prescriptions: HYDROcodone/ACETAMIN 5-325 MG* [[place] 5-325 TAB*] 0.5 tab PO Q6H PRN #10 tab MDD 2 PRN Reason: Pain - Severe HYDROcodone/ACETAMIN 5-325 MG* [[place] 5-325 TAB*] 0.5 tab PO Q6H PRN #10 tab MDD 2 PRN Reason: Pain - Severe Patient Education Materials: Chronic Back Pain (DC) Referrals: Bill Holt MD [Primary Care Provider] - 2 Days Amy Leiva MD [Medical Doctor] - 06/19/19 8:20 am Additional Instructions: Please take medication as prescribed. When taking Hydrocodone, DO NOT DRIVE within FOUR hours of taking it, but you are otherwise able to drive yourself to your appointments. Follow up with Dr. Leiva on 06/19/2019, at 8:20 a.m. You are also on the call list for cancellations at the Pain Clinic tomorrow. RETURN TO THE EMERGENCY DEPARTMENT FOR ANY NEW OR WORSENING SYMPTOMS. - Billing Disposition and Condition Condition: IMPROVED Disposition: Home - Attestation Statements Document Initiated by Scribe: Yes Documenting Scribe: Rekha Jara Provider For Whom Camilleibsally is Documenting (Include Credential): Dr. Tramaine Shepherd MD Scribe Attestation: IRekha, scribed for Dr. Tramaine Shepherd MD on 06/15/19 at 2030. Status of Scribe Document: Ready
[2019-06-15 12:58] LABS: Hematocrit 39 % (35-47); Hemoglobin 13.4 g/dL (12.0-16.0); Mean Corpuscular HGB Conc 34 g/dL (31-36); Mean Corpuscular Hemoglobin 35 pg (27-31); Mean Corpuscular Volume 102 fL (80-97); Mean Platelet Volume 7.2 fL (7.4-10.4); Platelet Count 160 10^3/uL (150-450); Red Blood Count 3.84 10^6 /uL (3.70-4.87); Red Cell Distribution Width 13 % (10-15); White Blood Count 5.9 10^3/uL (3.5-10.8)
[2019-06-15 13:15] LABS: ALT 22 U/L (7-52); AST 18 U/L (13-39); Albumin 4.3 g/dL (3.2-5.2); Albumin/Globulin Ratio 1.6 (1-3); Alkaline Phosphatase 74 U/L (34-104); Anion Gap 9 mmol/L (2-11); BUN/Creatinine Ratio 26.3 (8-20); Blood Urea Nitrogen 25 mg/dL (6-24); C Reactive Protein < 1.00 mg/L (<8.01); CO2 Carbon Dioxide 24 mmol/L (22-32); Calcium 10.7 mg/dL (8.6-10.3); Chloride 101 mmol/L (101-111); EGFR African American 67.5 (>60); EGFR Non-African American 55.8 (>60); Globulin 2.7 g/dL (2-4); Glucose 116 mg/dL (70-100); Sodium 134 mmol/L (135-145)
[2019-06-15 14:45] VITALS: BP 130/92
== END | disposition home or self-care (01) ==
LOC: ED 11:56
DX: M54.9 Dorsalgia, unspecified (principal); G89.29 Other chronic pain; E03.9 Hypothyroidism, unspecified; I20.9 Angina pectoris, unspecified; I10 Essential (primary) hypertension; E78.5 Hyperlipidemia, unspecified; I44.7 Left bundle-branch block, unspecified; Z88.1 Allergy status to other antibiotic agents; Z88.5 Allergy status to narcotic agent; Z88.2 Allergy status to sulfonamides; Z88.7 Allergy status to serum and vaccine; Z88.8 Allergy status to other drugs, medicaments and biological substances; E78.00 Pure hypercholesterolemia, unspecified
CPT/HCPCS: 36415; 72128; 72131; 80053; 85027; 86140; 99283

== ENCOUNTER 2021-07-07 10:47 | Observation (INO) ==
[2021-07-07 11:53] LABS: ABS Eosinophils 0.1 10^3/ul (0-0.6); ABS Lymphocytes 1.1 10^3/ul (1.0-4.8); ABS Monocytes 0.6 10^3/ul (0-0.8); ABS Neutrophils 3.6 10^3/ul (1.5-7.7); Eosinophil % 1.6 %; Hematocrit 41 % (35-47); Hemoglobin 14.1 g/dL (12.0-16.0); Lymphocyte % 20.1 %; Mean Corpuscular HGB Conc 35 g/dL (31-36); Mean Corpuscular Hemoglobin 37 pg (27-31); Mean Corpuscular Volume 105 fL (80-97); Mean Platelet Volume 7.2 fL (7.4-10.4); Platelet Count 170 10^3/uL (150-450); Red Blood Count 3.86 10^6 /uL (3.70-4.87); Red Cell Distribution Width 13 % (10-15); White Blood Count 5.4 10^3/uL (3.5-10.8)
[2021-07-07 12:03] LABS: INR 1.04 (0.86-1.15)
[2021-07-07 12:12] LABS: Albumin/Globulin Ratio 1.5 (1-3); Calcium 9.7 mg/dL (8.6-10.3); EGFR African American 78.5 (>60); EGFR Non-African American 64.9 (>60); Globulin 2.6 g/dL (2-4); Potassium 3.9 mmol/L (3.5-5.0); Total Bilirubin 0.6 mg/dL (0.2-1.0); Total Protein 6.6 g/dL (6.4-8.9)
[2021-07-07 12:14] LABS: Troponin I 0.01 ng/mL (<0.03)
[2021-07-07] MEDS ORDERED: Ondansetron 4 mg VIAL 2 MG/ML 2 ml VIAL IV PRN (14:52)
[2021-07-07] MEDS ORDERED: Enoxaparin 40 MG/0.4 ML SYR SUBCUT SCH (15:00)
[2021-07-08 05:29] LABS: ABS Eosinophils 0.1 10^3/ul (0-0.6); ABS Lymphocytes 1.3 10^3/ul (1.0-4.8); ABS Monocytes 0.4 10^3/ul (0-0.8); ABS Neutrophils 2.4 10^3/ul (1.5-7.7); Eosinophil % 2.8 %; Hematocrit 39 % (35-47); Hemoglobin 13.9 g/dL (12.0-16.0); Lymphocyte % 30.7 %; Mean Corpuscular HGB Conc 36 g/dL (31-36); Mean Corpuscular Hemoglobin 37 pg (27-31); Mean Corpuscular Volume 104 fL (80-97); Mean Platelet Volume 7.7 fL (7.4-10.4); Platelet Count 152 10^3/uL (150-450); Red Blood Count 3.75 10^6 /uL (3.70-4.87); Red Cell Distribution Width 13 % (10-15); White Blood Count 4.3 10^3/uL (3.5-10.8)
[2021-07-08 05:48] LABS: Calcium 9.4 mg/dL (8.6-10.3); EGFR African American 77.4 (>60); Potassium 3.9 mmol/L (3.5-5.0)
[2021-07-08] MEDS ORDERED: Perflutren Lipid Microsphere 3 ML VIAL ONE (07:51)
[2021-07-08] MEDS ORDERED: Timolol 0.5% OPTH.SOL BTL BOTH EYES SCH (09:00)
[2021-07-08] MEDS ORDERED: Regadenoson 0.4 MG/5 ML SYRINGE ONE (10:38)
[2021-07-08 11:52] VITALS: BP 135/61
== END 2021-07-08 14:00 | disposition home or self-care (01) ==
LOC: ED 10:47 → MEDTELE 10:47
PROVIDERS: ADMIT Hospitalist; ATTEND Hospitalist